=== PATIENT | female | born 1950 | race Caucasian/White ===

== ENCOUNTER 2019-12-26 04:21 | Inpatient (IN) | payer MEDICARE ==
[2019-12-26] MEDS ORDERED: Sodium Chloride 0.9% 10 ML Syringe FLUSH PRN (04:41)
[2019-12-26] MEDS ORDERED: Sodium Chloride 0.9% 1,000 ML IV ONE ×3 (04:41→13:39)
[2019-12-26] MEDS ORDERED: Acetaminophen 500 MG Tab PO ONE (04:42)
--- NOTE | 2019-12-26 04:48 | EDM.PDOC ---
ED HPI GENERAL MEDICAL PROBLEM - General Chief Complaint: Fever Stated Complaint: MED[facility] Time Seen by Provider: 12/26/19 04:37 Source of Information: Reports: Patient, EMS History Limitations: Reports: Physical Impairment - History of Present Illness INITIAL COMMENTS - FREE TEXT/NARRATIVE: Patient presents by ambulance from home concerned that she has a return of sepsis symptoms. She has had previous admissions for sepsis. She began to feel warm, shaky, weak earlier today. Her blood pressure and pulse were abnormal at home. She contacted EMS for transport as she was too weak to get here on her own. She felt quite warm at home but did not take her temperature. She states that at a previous admission, they started her on vancomycin right away. Onset: Sudden Duration: Getting Worse Location: Reports: Generalized Quality: Reports: Ache Severity: Severe Improves with: Reports: None Worsens with: Reports: None Associated Symptoms: Reports: Fever/Chills, Malaise. Denies: Nausea/Vomiting, Shortness of Breath Generalized Pain Score (Numeric/FACES): 10 - Related Data Allergies Allergy/AdvReac Type Severity Reaction Status Date / Time Latex, Natural Rubber Allergy Hives Verified 12/26/19 05:24 metronidazole [From Flagyl] Allergy Anaphylactic Verified 12/26/19 05:24 Shock morphine Allergy Hives Verified 12/26/19 05:44 Penicillins Allergy Anaphylactic Verified 12/26/19 05:44 Shock Home Meds: Home Meds Aspirin 81 mg PO DAILY 12/26/19 [History] Cholecalciferol (Vitamin D3) [Vitamin D3] 1 cap PO DAILY 12/26/19 [History] Citalopram [Citalopram HBr] 20 mg PO DAILY 12/26/19 [History] Clopidogrel [Plavix] 1 tab PO DAILY 12/26/19 [History] Furosemide [Lasix] 40 mg PO DAILY PRN 12/26/19 [History] Metoprolol Succinate [Toprol XL] 25 mg PO DAILY 12/26/19 [History] Multivitamin [Multi-Vitamin Daily] 1 tab PO DAILY 12/26/19 [History] Pregabalin 150 mg PO DAILY 12/26/19 [History] Rosuvastatin Calcium 40 mg PO BEDTIME 12/26/19 [History] Ubidecarenone/Vitamin E [Co Q-10 50 MG Softgel] 1 each PO DAILY 12/26/19 [ History] metFORMIN [Glucophage] 1,000 mg PO BIDMEALS 12/26/19 [History] methocarbamoL [Methocarbamol] 750 mg PO Q6H PRN 12/26/19 [History] Past Medical History HEENT 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: Impaired Vision, Other (See Below) Other HEENT History: wears dentures Cardiovascular 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: Arrhythmia, CAD, PR 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: Endocrine/Metabolic 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: Diabetes, Type I Oncologic (Cancer) 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: Breast Dermatologic 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: Cellulitis - Past Surgical History Cardiovascular Surgical 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: Coronary Artery Bypass, Coronary Artery Stent, Pacer Female Surgical 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: Hysterectomy, Oophorectomy Oncologic Surgical 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: Mastectomy Social & Family History - Tobacco Use Smoking Status *Q: Never Smoker - Caffeine Use Caffeine Use: Reports: Coffee - Recreational Drug Use Recreational Drug Use: No ED ROS GENERAL - Review of Systems Review Of Systems: See Below Constitutional: Reports: Fever, Chills, Malaise, Weakness, Fatigue Respiratory: Reports: Shortness of Breath Cardiovascular: Reports: Blood Pressure Problem, Lightheadedness GI/Abdominal: Reports: No Symptoms Neurological: Reports: Confusion ED EXAM, SEPSIS - Physical Exam Exam: See Below Text/Narrative:: She is shaking under her blankets and feels warm to the touch. Exam Limited By: Physical Impairment General Appearance: Moderate Distress Respiratory/Chest: Lungs Clear Cardiovascular: Regular Rate, Rhythm, Systolic Murmur GI/Abdominal Exam: Soft, Non-Tender Extremities: No Pedal Edema Course - Vital Signs Last Recorded V/S: Last Vital Signs Temp 37.9 C 12/26/19 05:47 Pulse 81 12/26/19 04:24 Resp 30 H 12/26/19 06:27 BP 105/52 L 12/26/19 06:27 Pulse Ox 96 12/26/19 06:27 - Orders/Labs/Meds Orders: Active Orders 24 hr Category Date Time Status EKG Documentation Completion [RC] ASDIRECTED Care 12/26/19 04:40 Active Insert Yu Catheter [Insert Urinary Catheter] [OM.PC] Care 12/26/19 06:15 Ordered Q24H Urinary Catheter Assessment [RC] ASDIRECTED Care 12/26/19 06:09 Active Chest 1V Frontal [CR] Stat Exams 12/26/19 04:53 Taken CULTURE BLOOD [BC] Urgent Lab 12/26/19 05:00 Received CULTURE BLOOD [BC] Urgent Lab 12/26/19 05:05 Received CULTURE URINE [RM] Stat Lab 12/26/19 04:42 Ordered Sodium Chloride 0.9% [Normal Saline] 1,000 ml Med 12/26/19 05:54 Ordered IV .BOLUS Sodium Chloride 0.9% [Saline Flush] Med 12/26/19 04:41 Active 10 ml FLUSH ASDIRECTED PRN Vancomycin 2 gm Med 12/26/19 06:36 Active Sodium Chloride 0.9% [Normal Saline] 500 ml IV ONETIME Blood Culture x2 Reflex Set [OM.PC] Urgent Oth 12/26/19 04:37 Ordered Saline Lock Insert [OM.PC] Routine Oth 12/26/19 04:41 Ordered EKG 12 Lead [EK] Routine Ther 12/26/19 04:40 Ordered Medication Orders Sodium Chloride (Normal Saline) 1,000 mls @ 999 mls/hr IV .BOLUS ONE Stop: 12/26/19 06:54 Last Admin: 12/26/19 06:15 Dose: 999 mls/hr Vancomycin HCl 2 gm/ Sodium (Chloride) 500 mls @ 250 mls/hr IV ONETIME ONE Stop: 12/26/19 08:35 Sodium Chloride (Saline Flush) 10 ml FLUSH ASDIRECTED PRN PRN Reason: Keep Vein Open Last Admin: 12/26/19 05:03 Dose: 10 ml Labs: Laboratory Tests 12/26/19 12/26/19 12/26/19 Range/Units 05:00 05:00 05:00 WBC 14.0 H (4.5-11.0) K/uL RBC 4.41 (3.30-5.50) M/uL Hgb 12.4 (12.0-15.0) g/dL Hct 38.5 (36.0-48.0) % MCV 87 (80-98) fL MCH 28 (27-31) pg MCHC 32 (32-36) % Plt Count 218 (150-400) K/uL Neut % (Auto) 90 H (36-66) % Lymph % (Auto) 5 L (24-44) % Swain % (Auto) 5 (2-6) % Eos % (Auto) 0 L (2-4) % Baso % (Auto) 0 (0-1) % Sodium 140 (140-148) mmol/L Potassium 3.9 (3.6-5.2) mmol/L Chloride 101 (100-108) mmol/L Carbon Dioxide 24 (21-32) mmol/L Anion Gap 14.6 H (5.0-14.0) mmol/L BUN 20 H (7-18) mg/dL Creatinine 1.2 H (0.6-1.0) mg/dL Est Cr Clr Drug Dosing 34.01 mL/min Estimated GFR (MDRD) 44 L (>60) Glucose 155 H (74-106) mg/dL Lactic Acid 3.8 H (0.4-2.0) mmol/L Calcium 9.4 (8.5-10.1) mg/dL Total Bilirubin 0.8 (0.2-1.0) mg/dL AST 21 (15-37) U/L ALT 25 (12-78) U/L Alkaline Phosphatase 112 (46-116) U/L Total Protein 7.2 (6.4-8.2) g/dL Albumin 3.6 (3.4-5.0) g/dL Globulin 3.6 H (2.3-3.5) g/dL Albumin/Globulin Ratio 1.0 L (1.2-2.2) Urine Color (YELLOW) Urine Appearance (CLEAR) Urine pH (5.0-8.0) Ur Specific [place] (1.008-1.030) Urine Protein (NEGATIVE) mg/dL Urine Glucose (UA) (NEGATIVE) mg/dL Urine Ketones (NEGATIVE) mg/dL Urine Occult Blood (NEGATIVE) Urine Nitrite (NEGATIVE) Urine Bilirubin (NEGATIVE) Urine Urobilinogen (0.2-1.0) EU/dL Ur Leukocyte Esterase (NEGATIVE) Urine RBC (0-5) Urine WBC (0-5) Ur Epithelial Cells Amorphous Sediment Urine Bacteria Urine Mucus 12/26/19 Range/Units 06:10 WBC (4.5-11.0) K/uL RBC (3.30-5.50) M/uL Hgb (12.0-15.0) g/dL Hct (36.0-48.0) % MCV (80-98) fL MCH (27-31) pg MCHC (32-36) % Plt Count (150-400) K/uL Neut % (Auto) (36-66) % Lymph % (Auto) (24-44) % [place] % (Auto) (2-6) % Eos % (Auto) (2-4) % Baso % (Auto) (0-1) % Sodium (140-148) mmol/L Potassium (3.6-5.2) mmol/L Chloride (100-108) mmol/L Carbon Dioxide (21-32) mmol/L Anion Gap (5.0-14.0) mmol/L BUN (7-18) mg/dL Creatinine (0.6-1.0) mg/dL Est Cr Clr Drug Dosing mL/min Estimated GFR (MDRD) (>60) Glucose (74-106) mg/dL Lactic Acid (0.4-2.0) mmol/L Calcium (8.5-10.1) mg/dL Total Bilirubin (0.2-1.0) mg/dL AST (15-37) U/L ALT (12-78) U/L Alkaline Phosphatase (46-116) U/L Total Protein (6.4-8.2) g/dL Albumin (3.4-5.0) g/dL Globulin (2.3-3.5) g/dL Albumin/Globulin Ratio (1.2-2.2) Urine Color Yellow (YELLOW) Urine Appearance Clear (CLEAR) Urine pH 7.0 (5.0-8.0) Ur Specific [place] 1.020 (1.008-1.030) Urine Protein 100 H (NEGATIVE) mg/dL Urine Glucose (UA) Negative (NEGATIVE) mg/dL Urine Ketones Negative (NEGATIVE) mg/dL Urine Occult Blood Negative (NEGATIVE) Urine Nitrite Negative (NEGATIVE) Urine Bilirubin Negative (NEGATIVE) Urine Urobilinogen 0.2 (0.2-1.0) EU/dL Ur Leukocyte Esterase Negative (NEGATIVE) Urine RBC 0-5 (0-5) Urine WBC 0-5 (0-5) Ur Epithelial Cells Not seen Amorphous Sediment Not seen Urine Bacteria Rare Urine Mucus Not seen Meds: Medications Generic Name Dose Route Start Last Admin Trade Name Freq PRN Reason Stop Dose Admin Sodium Chloride 1,000 mls @ 999 mls/hr 12/26/19 05:54 12/26/19 06:15 Normal Saline IV 12/26/19 06:54 999 mls/hr .BOLUS ONE Administration Vancomycin HCl 2 gm/ Sodium 500 mls @ 250 mls/hr 12/26/19 06:36 Chloride IV 12/26/19 08:35 ONETIME ONE Sodium Chloride 10 ml 12/26/19 04:41 12/26/19 05:03 Saline Flush FLUSH 10 ml ASDIRECTED PRN Administration Keep Vein Open Discontinued Medications Generic Name Dose Route Start Last Admin Trade Name Evangelista PRN Reason Stop Dose Admin Acetaminophen 1,000 mg 12/26/19 04:42 12/26/19 04:53 Tylenol Extra Strength PO 12/26/19 04:43 1,000 mg ONETIME ONE Administration Sodium Chloride 1,000 mls @ 999 mls/hr 12/26/19 04:41 12/26/19 05:01 Normal Saline IV 12/26/19 05:41 999 mls/hr .BOLUS ONE Administration - Re-Assessments/Exams Free Text/Narrative Re-Assessment/Exam: 12/26/19 05:03 Patient will be given 1 L of normal saline by rapid infusion along with Tylenol 1000 mg. Lab and imaging studies are pending. 12/26/19 06:51 Patient felt better after Tylenol and her initial liter of saline. She has not had presents here as a patient for a number of years. She will need admission. I reviewed her case with Dr. Torres who will arrange admission and further care. Departure - Departure Time of Disposition: 06:52 Disposition: Admitted As Inpatient 64 Condition: Fair Clinical Impression: Sepsis Qualifiers: Sepsis type: sepsis due to unspecified organism Sepsis acute organ dysfunction status: without acute organ dysfunction Qualified Code(s): A41.9 - Sepsis, unspecified organism - Discharge Information Referrals: PCP,None [Primary Care Provider] - Forms: ED Department Discharge Sepsis Event Note - Evaluation Sepsis Screening Result: Possible Severe Sepsis Risk - Focused Exam Vital Signs: Vital Signs Temp Pulse Resp BP Pulse Ox 12/26/19 06:27 30 H 105/52 L 96 12/26/19 05:47 37.9 C 12/26/19 05:07 25 H 104/47 L 94 L 12/26/19 04:24 39.4 C H 81 22 H 106/40 L 97 Date Exam was Performed: 12/26/19 Time Exam was Performed: 06:50 - My Orders Last 24 Hours: My Active Orders 12/26/19 04:37 Blood Culture x2 Reflex Set [OM.PC] Urgent 12/26/19 04:40 EKG Documentation Completion [RC] ASDIRECTED EKG 12 Lead [EK] Routine 12/26/19 04:41 Sodium Chloride 0.9% [Saline Flush] 10 ml FLUSH ASDIRECTED PRN Saline Lock Insert [OM.PC] Routine 12/26/19 04:42 CULTURE URINE [RM] Stat 12/26/19 04:53 Chest 1V Frontal [CR] Stat 12/26/19 05:00 CULTURE BLOOD [BC] Urgent 12/26/19 05:05 CULTURE BLOOD [BC] Urgent 12/26/19 05:54 Sodium Chloride 0.9% [Normal Saline] 1,000 ml IV .BOLUS 12/26/19 06:09 Urinary Catheter Assessment [RC] ASDIRECTED 12/26/19 06:15 Insert Yu Catheter [Insert Urinary Catheter] [OM.PC] Q24H - Assessment/Plan Last 24 Hours: My Active Orders 12/26/19 04:37 Blood Culture x2 Reflex Set [OM.PC] Urgent 12/26/19 04:40 EKG Documentation Completion [RC] ASDIRECTED EKG 12 Lead [EK] Routine 12/26/19 04:41 Sodium Chloride 0.9% [Saline Flush] 10 ml FLUSH ASDIRECTED PRN Saline Lock Insert [OM.PC] Routine 12/26/19 04:42 CULTURE URINE [RM] Stat 12/26/19 04:53 Chest 1V Frontal [CR] Stat 12/26/19 05:00 CULTURE BLOOD [BC] Urgent 12/26/19 05:05 CULTURE BLOOD [BC] Urgent 12/26/19 05:54 Sodium Chloride 0.9% [Normal Saline] 1,000 ml IV .BOLUS 12/26/19 06:09 Urinary Catheter Assessment [RC] ASDIRECTED 12/26/19 06:15 Insert Yu Catheter [Insert Urinary Catheter] [OM.PC] Q24H
[2019-12-26] MEDS ORDERED: Vancomycin 2 GM in Sodium Chloride 0.9% 500 ML IV ONE (06:36)
--- NOTE | 2019-12-26 07:23 | PCM.HP.2 ---
H&P History of Present Illness - General Date of Service: 12/26/19 Admit Problem/Dx: Admission Diagnosis/Problem Admission Diagnosis/Problem Cellulitis of arm Source of Information: Patient, Provider History Limitations: Reports: No Limitations - History of Present Illness Initial Comments - Free Text/Narative: CC: I had the savita HPI: Adrianna presents to the emergency room today with fevers, chills and confusion. She reports that she was in her usual state of health yesterday. Last night prior to going to bed she felt a little bit off but nothing in particular. Shortly thereafter she developed fever and shaking chills. She did not measure her temperature. Symptoms progressed through the night so eventually she did call the ambulance early this morning. She does report a moderate generalized headache that does not radiate. She has not taken anything to make it better. Pain has been fairly constant with no obvious exacerbating factors. No photophobia. She does note that her right arm is a little bit more swollen than usual. No change in bowel or bladder habits. No cough, shortness of breath or sore throat. She does have a history of cellulitis of the right arm with most recent episode about 1 year ago. No sick contacts or recent travel. Work-up in the emergency room was suggestive of sepsis with a likely source being the right arm cellulitis. She was tachycardic, confused and had an elevated lactic acid level. She has received IV fluids and antibiotics and will be admitted for further management. Generalized Pain Score (Numeric/FACES): 10 - Related Data Allergies/Adverse Reactions: Allergies Allergy/AdvReac Type Severity Reaction Status Date / Time Latex, Natural Rubber Allergy Hives Verified 12/26/19 05:24 metronidazole [From Flagyl] Allergy Anaphylactic Verified 12/26/19 05:24 Shock morphine Allergy Hives Verified 12/26/19 05:44 Penicillins Allergy Anaphylactic Verified 12/26/19 05:44 Shock Home Medications: Home Meds Aspirin 81 mg PO DAILY 12/26/19 [History] Cholecalciferol (Vitamin D3) [Vitamin D3] 1 cap PO DAILY 12/26/19 [History] Citalopram [Citalopram HBr] 20 mg PO DAILY 12/26/19 [History] Clopidogrel [Plavix] 1 tab PO DAILY 12/26/19 [History] Furosemide [Lasix] 40 mg PO DAILY PRN 12/26/19 [History] Metoprolol Succinate [Toprol XL] 25 mg PO DAILY 12/26/19 [History] Multivitamin [Multi-Vitamin Daily] 1 tab PO DAILY 12/26/19 [History] Pregabalin 150 mg PO TID 12/26/19 [History] Rosuvastatin Calcium 40 mg PO BEDTIME 12/26/19 [History] Ubidecarenone/Vitamin E [Co Q-10 50 MG Softgel] 1 each PO DAILY 12/26/19 [ History] metFORMIN [Glucophage] 1,000 mg PO BIDMEALS 12/26/19 [History] methocarbamoL [Methocarbamol] 750 mg PO Q6H PRN 12/26/19 [History] Past Medical History HEENT 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: Impaired Vision, Other (See Below) Other HEENT History: wears dentures Cardiovascular 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: Arrhythmia, CAD, [place] [employer] 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: Endocrine/Metabolic 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: Diabetes, Type I Oncologic (Cancer) 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: Breast Dermatologic 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: Cellulitis - Past Surgical History Cardiovascular Surgical 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: Coronary Artery Bypass, Coronary Artery Stent, Pacer Female Surgical 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: Hysterectomy, Oophorectomy Oncologic Surgical 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: Mastectomy Social & Family History - Family History Cardiac: Denies: CAD - Tobacco Use Smoking Status *Q: Never Smoker - Caffeine Use Caffeine Use: Reports: Coffee - Recreational Drug Use Recreational Drug Use: No H&P Review of Systems - Review of Systems: Review Of Systems: See Below Free Text/Narrative: A complete 12 point review of systems was obtained. Pertinent positives and negatives are noted in the history of present illness. All other systems were reviewed and were negative except as noted. Exam - Exam Exam: See Below - Vital Signs Vital Signs: Last Vital Signs Temp 37.9 C 12/26/19 05:47 Pulse 81 12/26/19 04:24 Resp 30 H 12/26/19 06:27 BP 105/52 L 12/26/19 06:27 Pulse Ox 96 12/26/19 06:27 Weight: 73.482 kg - Exam Quality Assessment: No: Supplemental Oxygen General: Alert, Oriented, Cooperative. No: Mild Distress HEENT: Conjunctiva Clear, Mucosa Moist & [place]. No: Scleral Icterus Neck: Supple, Trachea Midline Lungs: Clear to Auscultation, Normal Respiratory Effort Cardiovascular: Regular Rate, Regular Rhythm GI/Abdominal Exam: Normal Bowel Sounds, Soft, No Distention, Tender (left mid abdomen ) Back Exam: Normal Inspection, Full Range of Motion Extremities: No Pedal Edema, Increased Warmth (right arm from wrist to the shoulder ) Skin: Warm, Dry Neuro Extensive - Mental Status: Alert, Oriented x3, Nl Response to Commands Neuro Extensive - Motor, Sensory, Reflexes: No: Dysarthria, Abnormal Motor, Tremor Psychiatric: Alert, Normal Affect - Patient Data Lab Results Last 24 hrs: Laboratory Results - last 24 hr 12/26/19 12/26/19 12/26/19 Range/Units 05:00 05:00 05:00 WBC 14.0 H (4.5-11.0) K/uL RBC 4.41 (3.30-5.50) M/uL Hgb 12.4 (12.0-15.0) g/dL Hct 38.5 (36.0-48.0) % MCV 87 (80-98) fL MCH 28 (27-31) pg MCHC 32 (32-36) % Plt Count 218 (150-400) K/uL Neut % (Auto) 90 H (36-66) % Lymph % (Auto) 5 L (24-44) % [place] % (Auto) 5 (2-6) % Eos % (Auto) 0 L (2-4) % Baso % (Auto) 0 (0-1) % Sodium 140 (140-148) mmol/L Potassium 3.9 (3.6-5.2) mmol/L Chloride 101 (100-108) mmol/L Carbon Dioxide 24 (21-32) mmol/L Anion Gap 14.6 H (5.0-14.0) mmol/L BUN 20 H (7-18) mg/dL Creatinine 1.2 H (0.6-1.0) mg/dL Est Cr Clr Drug Dosing 34.01 mL/min Estimated GFR (MDRD) 44 L (>60) Glucose 155 H (74-106) mg/dL Lactic Acid 3.8 H (0.4-2.0) mmol/L Calcium 9.4 (8.5-10.1) mg/dL Total Bilirubin 0.8 (0.2-1.0) mg/dL AST 21 (15-37) U/L ALT 25 (12-78) U/L Alkaline Phosphatase 112 (46-116) U/L Total Protein 7.2 (6.4-8.2) g/dL Albumin 3.6 (3.4-5.0) g/dL Globulin 3.6 H (2.3-3.5) g/dL Albumin/Globulin Ratio 1.0 L (1.2-2.2) Urine Color (YELLOW) Urine Appearance (CLEAR) Urine pH (5.0-8.0) Ur Specific [place] (1.008-1.030) Urine Protein (NEGATIVE) mg/dL Urine Glucose (UA) (NEGATIVE) mg/dL Urine Ketones (NEGATIVE) mg/dL Urine Occult Blood (NEGATIVE) Urine Nitrite (NEGATIVE) Urine Bilirubin (NEGATIVE) Urine Urobilinogen (0.2-1.0) EU/dL Ur Leukocyte Esterase (NEGATIVE) Urine RBC (0-5) Urine WBC (0-5) Ur Epithelial Cells Amorphous Sediment Urine Bacteria Urine Mucus 12/25/ Range/Units 06:10 WBC (4.5-11.0) K/uL RBC (3.30-5.50) M/uL Hgb (12.0-15.0) g/dL Hct (36.0-48.0) % MCV (80-98) fL MCH (27-31) pg MCHC (32-36) % Plt Count (150-400) K/uL Neut % (Auto) (36-66) % Lymph % (Auto) (24-44) % [place] % (Auto) (2-6) % Eos % (Auto) (2-4) % Baso % (Auto) (0-1) % Sodium (140-148) mmol/L Potassium (3.6-5.2) mmol/L Chloride (100-108) mmol/L Carbon Dioxide (21-32) mmol/L Anion Gap (5.0-14.0) mmol/L BUN (7-18) mg/dL Creatinine (0.6-1.0) mg/dL Est Cr Clr Drug Dosing mL/min Estimated GFR (MDRD) (>60) Glucose (74-106) mg/dL Lactic Acid (0.4-2.0) mmol/L Calcium (8.5-10.1) mg/dL Total Bilirubin (0.2-1.0) mg/dL AST (15-37) U/L ALT (12-78) U/L Alkaline Phosphatase (46-116) U/L Total Protein (6.4-8.2) g/dL Albumin (3.4-5.0) g/dL Globulin (2.3-3.5) g/dL Albumin/Globulin Ratio (1.2-2.2) Urine Color Yellow (YELLOW) Urine Appearance Clear (CLEAR) Urine pH 7.0 (5.0-8.0) Ur Specific [place] 1.020 (1.008-1.030) Urine Protein 100 H (NEGATIVE) mg/dL Urine Glucose (UA) Negative (NEGATIVE) mg/dL Urine Ketones Negative (NEGATIVE) mg/dL Urine Occult Blood Negative (NEGATIVE) Urine Nitrite Negative (NEGATIVE) Urine Bilirubin Negative (NEGATIVE) Urine Urobilinogen 0.2 (0.2-1.0) EU/dL Ur Leukocyte Esterase Negative (NEGATIVE) Urine RBC 0-5 (0-5) Urine WBC 0-5 (0-5) Ur Epithelial Cells Not seen Amorphous Sediment Not seen Urine Bacteria Rare Urine Mucus Not seen Result Diagrams: 12/26/19 05:00 12/26/19 05:00 Imaging Impressions Last 24 hrs: CXR-images personally reviewed-lungs clear with no mass, infiltrate or effusion. Pacemaker noted. EKG INTERPRETATION EKG Date: 12/26/19 Rhythm: NSR Rate (Beats/Min): 83 [place]: LAD-Left [place] Deviation P-Wave: Present QRS: LBBB ST-T: Normal QT: Normal Sepsis Event Note - Evaluation Sepsis Screening Result: Possible Severe Sepsis Risk Current Stage of Sepsis: Sepsis Possible Source of Sepsis: Skin/Soft Tissue - Focused Exam Sepsis Event Note Statement: Focused Sepsis Exam Completed Vital Signs: Vital Signs Temp Pulse Resp BP Pulse Ox 12/26/19 06:27 30 H 105/52 L 96 12/26/19 05:47 37.9 C 12/26/19 05:07 25 H 104/47 L 94 L 12/26/19 04:24 39.4 C H 81 22 H 106/40 L 97 Respiratory Effort Without Exertion: Other (see below) (normal ) Heart Sounds: Murmur Capillary Refill, Detail: Less than/Equal to (</=) 2 Seconds Pulse Description: 2+ Normal Peripheral Pulse Location: Dorsalis Pedis Skin Exam (Focused Sepsis): Normal Turgor Date Exam was Performed: 12/26/19 Time Exam was Performed: 07:38 *Q Meaningful Use (ADM) - VTE Risk Assess *Q Each Risk Factor Represents 1 Point: Obesity ( BMI > 25 kg/m2), Sepsis Total Score 1 Point Risk Factors: 2 Each Risk Factor Represents 2 Points: Age 60 - 74 Years, Malignancy (present or previous) Total Score 2 Point Risk Factors: 4 Each Risk Factor Represents 3 Points: None Total Score 3 Point Risk Factors: 0 Each Risk Factor Represents 5 Points: None Total Score 5 Point Risk Factors: 0 Venous Thromboembolism Risk Factor Score *Q: 6 - Problem List (1) Cellulitis of right arm SNOMED Code(s): 662017017 ICD Code: L03.113 - CELLULITIS OF RIGHT UPPER LIMB Status: Acute Current Visit: Yes (2) Sepsis SNOMED Code(s): 70559740 ICD Code: A41.9 - SEPSIS, UNSPECIFIED ORGANISM Status: Acute Current Visit: Yes Qualifiers: Sepsis type: sepsis due to unspecified organism Sepsis acute organ dysfunction status: without acute organ dysfunction Qualified Code(s): A41.9 - Sepsis, unspecified organism (3) Diabetes mellitus type II, controlled SNOMED Code(s): 04661050, 911473526 ICD Code: E11.9 - TYPE 2 DIABETES MELLITUS WITHOUT COMPLICATIONS Status: Chronic Current Visit: Yes Qualifiers: Diabetes mellitus shelter insulin use: without shelter use Diabetes mellitus complication status: with neurologic complications Diabetes mellitus complication detail: with polyneuropathy Qualified Code(s): E11.42 - Type 2 diabetes mellitus with diabetic polyneuropathy (4) Hx of breast cancer SNOMED Code(s): 595780296 ICD Code: Z85.3 - PERSONAL HISTORY OF MALIGNANT NEOPLASM OF BREAST Status: Chronic Current Visit: Yes Problem List Initiated/Reviewed/Updated: Yes Orders Last 24hrs: Active Orders 24 hr Category Date Time Status Patient Status Manage Transfer [TRANSFER] Routine ADT 12/26/19 07:10 Ordered EKG Documentation Completion [RC] ASDIRECTED Care 12/26/19 04:40 Active Insert Yu Catheter [Insert Urinary Catheter] [OM.PC] Care 12/26/19 06:15 Ordered Q24H Urinary Catheter Assessment [RC] ASDIRECTED Care 12/26/19 06:09 Active Chest 1V Frontal [CR] Stat Exams 12/26/19 04:53 Taken CULTURE BLOOD [BC] Urgent Lab 12/26/19 05:00 Received CULTURE BLOOD [BC] Urgent Lab 12/26/19 05:05 Received CULTURE URINE [RM] Stat Lab 12/26/19 06:10 Received Sodium Chloride 0.9% [Normal Saline] 1,000 ml Med 12/26/19 07:15 Active IV ASDIRECTED Sodium Chloride 0.9% [Saline Flush] Med 12/26/19 04:41 Active 10 ml FLUSH ASDIRECTED PRN Vancomycin 2 gm Med 12/26/19 06:36 Active Sodium Chloride 0.9% [Normal Saline] 500 ml IV ONETIME Blood Culture x2 Reflex Set [OM.PC] Urgent Oth 12/26/19 04:37 Ordered Saline Lock Insert [OM.PC] Routine Oth 12/26/19 04:41 Ordered Resuscitation Status Routine Resus Stat 12/26/19 07:11 Ordered EKG 12 Lead [EK] Routine Ther 12/26/19 04:40 Ordered Medication Orders Vancomycin HCl 2 gm/ Sodium (Chloride) 500 mls @ 250 mls/hr IV ONETIME ONE Stop: 12/26/19 08:35 Last Admin: 12/26/19 07:03 Dose: 250 mls/hr Sodium Chloride (Normal Saline) 1,000 mls @ 125 mls/hr IV ASDIRECTED MYRA Sodium Chloride (Saline Flush) 10 ml FLUSH ASDIRECTED PRN PRN Reason: Keep Vein Open Last Admin: 12/26/19 05:03 Dose: 10 ml Assessment/Plan Comment:: ASSESSMENT AND PLAN - Right arm cellulitis with sepsis-history of breast cancer with right mastectomy. Evidence for sepsis includes tachycardia, confusion and lactic acidosis. She is improving with treatment provided so far in the emergency room. She has received antibiotics after cultures were obtained and is in the process of completing a 30 mL/kg fluid bolus. Blood pressure is stable at this time. 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 Controlled by history. -Continue metformin History of breast cancer-previous right mastectomy and extensive lymph node dissection on the right. Status post aortic valve placement-bioprosthetic valve. Maintenance issues - - DVT prophylaxis -SCDs - GI prophylaxis -not indicated - Nutrition -consistent carbohydrates - Yu catheter -not indicated CODE STATUS -full code Admission justification -this patient will be admitted for inpatient services and is medically appropriate meeting medical necessity for inpatient admission as outlined in my documentation. I reasonably expect the patient will require inpatient services that span a period time over 2 midnights. I reasonably expect this patient to be discharged or transferred within 96 hours after admission to the [facility]. Disposition -I would anticipate discharge home after the hospital stay Primary care physician - Dr Yoselyn Torres M.D. - Mortality Measure Prognosis:: Good
[2019-12-26] MEDS ORDERED: Ondansetron 4 MG Tab.DIS PO PRN (08:49)
[2019-12-26] MEDS ORDERED: Methocarbamol 500 MG Tab PO PRN (08:49)
[2019-12-26] MEDS ORDERED: Ondansetron 4 MG/2 ML SDV IV PRN (08:49)
[2019-12-26] MEDS ORDERED: LORazepam 2 MG/ML SDV IVPUSH PRN (08:49)
[2019-12-26] MEDS ORDERED: Magnesium Hydroxide 400 MG/5 ML Susp 30 ML Cup PO PRN (08:49)
[2019-12-26] MEDS: Sodium Chloride 0.9% 1,000 ML IV SCH ×2 (09:00→15:58)
[2019-12-26] MEDS: Ibuprofen 600 MG Tab PO PRN (09:54)
[2019-12-26] MEDS ORDERED: Sodium Chloride 0.9% 500 ML IV SCH (11:00)
[2019-12-26] MEDS: Clopidogrel 75 MG Tab PO SCH (11:25)
[2019-12-26] MEDS: Aspirin 81 MG Tab.Chew PO SCH (11:25)
[2019-12-26] MEDS: Citalopram 20 MG Tab PO SCH (11:25)
[2019-12-26] MEDS: Multivitamins with Iron/Calcium/Folic Acid/Minerals Tab PO SCH (11:25)
[2019-12-26] MEDS: Lactobacillus Rhamnosus GG (Probiotic) Cap PO SCH ×2 (11:25→20:29)
[2019-12-26] MEDS: Pregabalin 75 MG Cap PO SCH ×3 (11:29→20:32)
[2019-12-26] MEDS: metFORMIN 500 MG Tab PO SCH ×2 (11:29→18:11)
[2019-12-26] MEDS: Metoprolol Succinate 25 MG Tab.ER PO SCH (11:31)
[2019-12-26] MEDS: Acetaminophen 325 MG Tab PO PRN (14:58)
[2019-12-26] MEDS: Rosuvastatin 10 MG Tab PO SCH (20:28)
[2019-12-26] MEDS: Melatonin 3 MG Tab PO SCH (20:29)
[2019-12-27] MEDS: Sodium Chloride 0.9% 1,000 ML IV SCH ×2 (00:06→07:31)
[2019-12-27] MEDS: Acetaminophen 325 MG Tab PO PRN ×3 (01:23→19:24)
[2019-12-27] MEDS: metFORMIN 500 MG Tab PO SCH ×2 (07:30→16:59)
[2019-12-27] MEDS: Multivitamins with Iron/Calcium/Folic Acid/Minerals Tab PO SCH (08:25)
[2019-12-27] MEDS: Clopidogrel 75 MG Tab PO SCH (08:25)
[2019-12-27] MEDS: Lactobacillus Rhamnosus GG (Probiotic) Cap PO SCH ×2 (08:25→21:37)
[2019-12-27] MEDS: Citalopram 20 MG Tab PO SCH (08:25)
[2019-12-27] MEDS: Aspirin 81 MG Tab.Chew PO SCH (08:25)
[2019-12-27] MEDS: Ibuprofen 600 MG Tab PO PRN ×2 (08:27→21:42)
[2019-12-27] MEDS: Pregabalin 75 MG Cap PO SCH (08:28)
[2019-12-27] MEDS: Metoprolol Succinate 25 MG Tab.ER PO SCH (08:28)
[2019-12-27] MEDS ORDERED: Potassium Chloride 20 MEQ Tab.ER PO ONE (09:00)
--- NOTE | 2019-12-27 10:04 | PCM.PN ---
- General Info Date of Service: 12/27/19 Subjective Update: No acute events overnight. Blood pressure was on the low side through the first part of the day yesterday but did improve overnight. She is feeling tired but otherwise feeling better. Right arm is still swollen and somewhat painful but better than yesterday. Redness is better compared to yesterday. White blood cell count is improved. No shortness of breath or nausea. Functional Status: Reports: Pain Controlled, Tolerating Diet - Review of Systems General: Denies: Fever Cardiovascular: Reports: Edema (right arm) Musculoskeletal: Reports: Arm Pain (right arm) - Patient Data Vitals - Most Recent: Last Vital Signs Temp 36.0 C L 12/27/19 07:33 Pulse 70 12/27/19 08:28 Resp 20 12/27/19 07:33 BP 110/44 L 12/27/19 08:28 Pulse Ox 92 L 12/27/19 07:33 Weight - Most Recent: 73.482 kg I&O - Last 24 Hours: Intake & Output 12/26/19 12/27/19 12/27/19 22:59 06:59 14:59 Intake Total 5673 2000 2177 Output Total 800 1700 600 Balance 4873 300 1577 Lab Results Last 24 Hours: Laboratory Results - last 24 hr 12/26/19 12/27/19 12/27/19 Range/Units 15:00 04:15 04:15 WBC 10.0 (4.5-11.0) K/uL RBC 3.54 (3.30-5.50) M/uL Hgb 9.9 L D (12.0-15.0) g/dL Hct 31.6 L (36.0-48.0) % MCV 89 (80-98) fL MCH 28 (27-31) pg MCHC 31 L (32-36) % Plt Count 153 (150-400) K/uL Sodium 141 (140-148) mmol/L Potassium 3.0 L (3.6-5.2) mmol/L Chloride 109 H (100-108) mmol/L Carbon Dioxide 21 (21-32) mmol/L Anion Gap 14.0 (5.0-14.0) mmol/L BUN 13 (7-18) mg/dL Creatinine 0.9 (0.6-1.0) mg/dL Est Cr Clr Drug Dosing 45.34 mL/min Estimated GFR (MDRD) > 60 (>60) Glucose 96 (74-106) mg/dL Lactic Acid 1.6 (0.4-2.0) mmol/L Calcium 7.9 L D (8.5-10.1) mg/dL [place] Results Last 24 Hours: Microbiology 12/26/19 06:10 Urine Culture - Preliminary Urine, Clean Catch NO GROWTH AFTER 1 DAY 12/26/19 05:00 Aerobic Blood Culture - Preliminary Blood - Venous - Iv Start NO GROWTH AFTER 1 DAY Anaerobic Blood Culture - Preliminary NO GROWTH AFTER 1 DAY 12/26/19 05:05 Aerobic Blood Culture - Preliminary Blood - Arm, Left NO GROWTH AFTER 1 DAY Anaerobic Blood Culture - Preliminary NO GROWTH AFTER 1 DAY Med Orders - Current: Current Medications Acetaminophen (Tylenol) 650 mg PO Q4H PRN PRN Reason: Pain (Mild 1-3)/fever Last Admin: 12/27/19 07:29 Dose: 650 mg Aspirin (Aspirin) 81 mg PO DAILY [facility] Last Admin: 12/27/19 08:25 Dose: 81 mg Citalopram Hydrobromide (Celexa) 20 mg PO DAILY [facility] Last Admin: 12/27/19 08:25 Dose: 20 mg Clopidogrel Bisulfate (Plavix) 75 mg PO DAILY [facility] Last Admin: 12/27/19 08:25 Dose: 75 mg Vancomycin HCl 1 gm/ Sodium (Chloride) 250 mls @ 150 mls/hr IV Q24H [facility] Last Admin: 12/27/19 07:26 Dose: 150 mls/hr Ibuprofen (Motrin) 600 mg PO Q6H PRN PRN Reason: Pain/Fever Last Admin: 12/27/19 08:27 Dose: 600 mg Lactobacillus Rhamnosus (Culturelle) 1 cap PO BID [facility] Last Admin: 12/27/19 08:25 Dose: 1 cap Lorazepam (Ativan) 0.5 mg IVPUSH Q4H PRN PRN Reason: Nausea/Vomiting Magnesium Hydroxide (Milk Of Magnesia) 30 ml PO Q12H PRN PRN Reason: Constipation Melatonin (Melatonin) 9 mg PO BEDTIME [facility] Last Admin: 12/26/19 20:29 Dose: 9 mg Metformin HCl (Glucophage) 1,000 mg PO BIDMEALS [facility] Last Admin: 12/27/19 07:30 Dose: 1,000 mg Methocarbamol (Robaxin) 750 mg PO Q6H PRN PRN Reason: Muscle Spasm Metoprolol Succinate (Toprol Xl) 25 mg PO DAILY [facility] Last Admin: 12/27/19 08:28 Dose: Not Given Multivitamins/Minerals (Thera M Plus) 1 tab PO DAILY [facility] Last Admin: 12/27/19 08:25 Dose: 1 tab Ondansetron HCl (Zofran Odt) 4 mg PO Q6H PRN PRN Reason: Nausea able to take PO Ondansetron HCl (Zofran) 4 mg IV Q6H PRN PRN Reason: Nausea/Vomiting Pregabalin (Lyrica) 150 mg PO BEDTIME [facility] Rosuvastatin Calcium (Crestor) 40 mg PO BEDTIME [facility] Last Admin: 12/26/19 20:28 Dose: 40 mg Senna/Docusate Sodium (Senna Plus) 1 tab PO BID PRN PRN Reason: Constipation Sodium Chloride (Saline Flush) 10 ml FLUSH ASDIRECTED PRN PRN Reason: Keep Vein Open Last Admin: 12/26/19 05:03 Dose: 10 ml Discontinued Medications Acetaminophen (Tylenol Extra Strength) 1,000 mg PO ONETIME ONE Stop: 12/26/19 04:43 Last Admin: 12/26/19 04:53 Dose: 1,000 mg Sodium Chloride (Normal Saline) 1,000 mls @ 999 mls/hr IV .BOLUS ONE Stop: 12/26/19 05:41 Last Admin: 12/26/19 05:01 Dose: 999 mls/hr Sodium Chloride (Normal Saline) 1,000 mls @ 999 mls/hr IV .BOLUS ONE Stop: 12/26/19 06:54 Last Admin: 12/26/19 06:15 Dose: 999 mls/hr Vancomycin HCl 2 gm/ Sodium (Chloride) 500 mls @ 250 mls/hr IV ONETIME ONE Stop: 12/26/19 08:35 Last Admin: 12/26/19 07:03 Dose: 250 mls/hr Sodium Chloride (Normal Saline) 1,000 mls @ 125 mls/hr IV ASDIRECTED [facility] Last Admin: 12/27/19 07:31 Dose: 125 mls/hr Sodium Chloride (Normal Saline) 500 mls @ 500 mls/hr IV ASDIRECTED [facility] Stop: 12/26/19 12:01 Sodium Chloride (Normal Saline) 1,000 mls @ 999 mls/hr IV .BOLUS ONE Stop: 12/26/19 14:39 Last Admin: 12/26/19 13:45 Dose: 999 mls/hr Potassium Chloride (Klor-Con M20) 40 meq PO ONETIME ONE Stop: 12/27/19 09:01 Last Admin: 12/27/19 09:00 Dose: 40 meq Pregabalin (Lyrica) 150 mg PO TID MYRA Last Admin: 12/27/19 08:28 Dose: Not Given - Exam Quality Assessment: No: Supplemental Oxygen General: Alert, Oriented, Cooperative, No Acute Distress Lungs: Normal Respiratory Effort Cardiovascular: Regular Rate, Regular Rhythm GI/Abdominal Exam: Soft, No Distention Extremities: No Pedal Edema, Increased Warmth (right arm from wrist to the shoulder) Skin: Warm, Dry, Rash (mild erythema right wrist to the shoulder (withing marked area)) Psy/Mental Status: Alert, Normal Affect Sepsis Event Note - Evaluation Sepsis Screening Result: No Definite Risk - Focused Exam Vital Signs: Vital Signs Temp Pulse Pulse Resp BP BP Pulse Ox 12/27/19 08:28 70 110/44 L 12/27/19 07:33 36.0 C L 70 20 110/44 L 92 L 12/27/19 02:00 36.6 C 70 16 93/54 L 96 12/26/19 22:36 37.7 C 81 16 100/54 L 92 L Date Exam was Performed: 12/27/19 Time Exam was Performed: 10:25 - Problem List & Annotations (1) Cellulitis of right arm SNOMED Code(s): 018776732 Code(s): L03.113 - CELLULITIS OF RIGHT UPPER LIMB Status: Acute Current Visit: Yes (2) Sepsis SNOMED Code(s): 56715718 Code(s): A41.9 - SEPSIS, UNSPECIFIED ORGANISM Status: Acute Current Visit : Yes Qualifiers: Sepsis type: sepsis due to unspecified organism Sepsis acute organ dysfunction status: without acute organ dysfunction Qualified Code(s): A41.9 - Sepsis, unspecified organism (3) Diabetes mellitus type II, controlled SNOMED Code(s): 99576307, 230740013 Code(s): E11.9 - TYPE 2 DIABETES MELLITUS WITHOUT COMPLICATIONS Status: Chronic Current Visit: Yes Qualifiers: Diabetes mellitus fdc insulin use: without fdc use Diabetes mellitus complication status: with neurologic complications Diabetes mellitus complication detail: with polyneuropathy Qualified Code(s): E11.42 - Type 2 diabetes mellitus with diabetic polyneuropathy (4) Hx of breast cancer SNOMED Code(s): 543395798 Code(s): Z85.3 - PERSONAL HISTORY OF MALIGNANT NEOPLASM OF BREAST Status: Chronic Current Visit: Yes - Problem List Review Problem List Initiated/Reviewed/Updated: Yes - My Orders Last 24 Hours: My Active Orders 12/26/19 10:00 Aspirin 81 mg PO DAILY Citalopram [Celexa] 20 mg PO DAILY Clopidogrel [Plavix] 75 mg PO DAILY Lactobacillus Rhamnosus GG [Culturelle] 1 cap PO BID Metoprolol Succinate [Toprol XL] 25 mg PO DAILY metFORMIN [Glucophage] 1,000 mg PO BIDMEALS 12/26/19 10:15 Multivitamins w-Iron/Ca/FA/Min [Thera M Plus] 1 tab PO DAILY 12/26/19 21:00 Melatonin 9 mg PO BEDTIME Rosuvastatin [Crestor] 40 mg PO BEDTIME 12/27/19 08:00 Vancomycin 1 gm Sodium Chloride 0.9% [Normal Saline] 250 ml IV Q24H 12/27/19 10:01 Convert IV to Saline Lock [OM.PC] Routine 12/27/19 21:00 Pregabalin [Lyrica] 150 mg PO BEDTIME 12/28/19 05:00 BASIC METABOLIC PANEL,BMP [CHEM] Timed CBC W/O DIFF,HEMOGRAM [HEME] Timed (1) - Plan Plan:: ASSESSMENT AND PLAN - Right arm cellulitis with sepsis-history of breast cancer with right mastectomy. Sepsis has resolved. Cultures negative so far. Clinically improving. Induration and erythema have improved compared to yesterday. 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 Controlled by history. -Continue metformin History of breast cancer-previous right mastectomy and extensive lymph node dissection on the right. Status post aortic valve placement-bioprosthetic valve. Maintenance issues - - DVT prophylaxis -SCDs - GI prophylaxis -not indicated - Nutrition -consistent carbohydrates Disposition -I would anticipate discharge home after the hospital stay Primary care physician - Dr Yoselyn Torres M.D.
[2019-12-27] MEDS ORDERED: Dimethicone 20%/Zinc Oxide 25% 56 GM Spray Bottle TOP PRN (18:13)
[2019-12-27] MEDS ORDERED: Pregabalin 75 MG Cap PO SCH (21:00)
[2019-12-27] MEDS: Melatonin 3 MG Tab PO SCH (21:38)
[2019-12-27] MEDS: Rosuvastatin 10 MG Tab PO SCH (21:38)
[2019-12-28] MEDS: Acetaminophen 325 MG Tab PO PRN (03:42)
[2019-12-28] MEDS: metFORMIN 500 MG Tab PO SCH (07:36)
[2019-12-28] MEDS: Lactobacillus Rhamnosus GG (Probiotic) Cap PO SCH (09:25)
[2019-12-28] MEDS: Multivitamins with Iron/Calcium/Folic Acid/Minerals Tab PO SCH (09:25)
[2019-12-28] MEDS: Aspirin 81 MG Tab.Chew PO SCH (09:25)
[2019-12-28] MEDS: Citalopram 20 MG Tab PO SCH (09:25)
[2019-12-28] MEDS: Metoprolol Succinate 25 MG Tab.ER PO SCH (09:25)
[2019-12-28] MEDS: Clopidogrel 75 MG Tab PO SCH (09:25)
--- NOTE | 2019-12-28 10:57 | PCM.DCSUM1 ---
Discharge Summary - Hospital Course Brief History: Ms. Burleson is a 69-year-old woman who was admitted through the emergency department with cellulitis of her right upper extremity and sepsis. - Discharge Data Discharge Date: 12/28/19 Discharge Disposition: Home, Self-Care 01 Condition: Fair - Referral to Home Health Primary Care Physician: PCP None - Discharge Diagnosis/Problem(s) (1) Sepsis SNOMED Code(s): 13407212 ICD Code: A41.9 - SEPSIS, UNSPECIFIED ORGANISM Status: Acute Current Visit: Yes Qualifiers: Sepsis type: sepsis due to unspecified organism Sepsis acute organ dysfunction status: without acute organ dysfunction Qualified Code(s): A41.9 - Sepsis, unspecified organism (2) Cellulitis of right arm SNOMED Code(s): 566546989 ICD Code: L03.113 - CELLULITIS OF RIGHT UPPER LIMB Status: Acute Current Visit: Yes (3) Diabetes mellitus type II, controlled SNOMED Code(s): 48584756, 716426442 ICD Code: E11.9 - TYPE 2 DIABETES MELLITUS WITHOUT COMPLICATIONS Status: Chronic Current Visit: Yes Qualifiers: Diabetes mellitus residential insulin use: without termination clerk use Diabetes mellitus complication status: with neurologic complications Diabetes mellitus complication detail: with polyneuropathy Qualified Code(s): E11.42 - Type 2 diabetes mellitus with diabetic polyneuropathy (4) Hx of aortic valve replacement SNOMED Code(s): 2864990096426, 668206078, 1901993805168 ICD Code: Z95.2 - PRESENCE OF PROSTHETIC HEART VALVE Status: Chronic Current Visit: No - Patient Summary/Data Hospital Course: Ms. Burleson presented to the emergency room with fevers, chills and confusion. She reports that she was in her usual state of health yesterday. Last night prior to going to bed she felt a little bit off but nothing in particular. Shortly thereafter she developed fever and shaking chills. She did not measure her temperature. Symptoms progressed through the night so eventually she did call the ambulance early this morning. She does report a moderate generalized headache that does not radiate. She has not taken anything to make it better. Pain has been fairly constant with no obvious exacerbating factors. No photophobia. She does note that her right arm is a little bit more swollen than usual. No change in bowel or bladder habits. No cough, shortness of breath or sore throat. She does have a history of cellulitis of the right arm with most recent episode about 1 year ago. No sick contacts or recent travel. Work-up in the emergency room was suggestive of sepsis with a likely source being the right arm cellulitis. She was tachycardic, confused and had an elevated lactic acid level. She has received IV fluids and antibiotics and will be admitted for further management. In the emergency department she was started on IV vancomycin and remained on that until the time of discharge. Blood cultures remained negative up until the time of discharge. After 2 days of hospitalization cellulitis of the right upper extremity had resolved. She did have significant residual lymphedema which she has struggled with for some time. She will be discharged home on an additional 7 days of oral antibiotic therapy with doxycycline and will also take probiotics twice daily. Follow-up appointment will be scheduled with her primary care provider within 1 week. Activity will be as tolerated and she will resume her usual diet. She was offered occupational therapy consult for management of her lymphedema but states that her daughter will set this up for her in the [facility]. - Patient Instructions Diet: Usual Diet as Tolerated Activity: As Tolerated Other/Special Instructions: Please schedule follow-up appointment with primary care provider within 1 week. - Discharge Plan *PRESCRIPTION DRUG MONITORING PROGRAM REVIEWED*: Not Applicable *COPY OF PRESCRIPTION DRUG MONITORING REPORT IN PATIENT LORI: Not Applicable Prescriptions/Med Rec: Doxycycline [Vibramycin] 100 mg PO BID #14 cap Lactobacillus Rhamnosus GG [Culturelle] 1 cap PO BID #60 cap Home Medications: Home Meds Aspirin 81 mg PO DAILY 12/26/19 [History] Cholecalciferol (Vitamin D3) [Vitamin D3] 1 cap PO DAILY 12/26/19 [History] Citalopram [Citalopram HBr] 20 mg PO DAILY 12/26/19 [History] Clopidogrel [Plavix] 1 tab PO DAILY 12/26/19 [History] Furosemide [Lasix] 40 mg PO DAILY PRN 12/26/19 [History] Metoprolol Succinate [Toprol XL] 25 mg PO DAILY 12/26/19 [History] Multivitamin [Multi-Vitamin Daily] 1 tab PO DAILY 12/26/19 [History] Pregabalin 150 mg PO TID 12/26/19 [History] Rosuvastatin Calcium 40 mg PO BEDTIME 12/26/19 [History] Ubidecarenone/Vitamin E [Co Q-10 50 MG Softgel] 1 each PO DAILY 12/26/19 [ History] metFORMIN [Glucophage] 1,000 mg PO BIDMEALS 12/26/19 [History] methocarbamoL [Methocarbamol] 750 mg PO Q6H PRN 12/26/19 [History] Doxycycline [Vibramycin] 100 mg PO BID #14 cap 12/28/19 [Rx] Lactobacillus Rhamnosus GG [Culturelle] 1 cap PO BID #60 cap 12/28/19 [Rx] Referrals: PCP,None [Primary Care Provider] - - Discharge Summary/Plan Comment DC Time >30 min.: No - Patient Data Vitals - Most Recent: Last Vital Signs Temp 96.0 F L 12/28/19 07:00 Pulse 60 12/28/19 09:25 Resp 18 12/28/19 07:00 BP 128/62 12/28/19 09:25 Pulse Ox 99 12/28/19 07:00 Weight - Most Recent: 162 lb I&O - Last 24 hours: Intake & Output 12/27/19 12/28/19 12/28/19 22:59 06:59 14:59 Intake Total 097 217 4657 Output Total 600 600 500 Balance -100 -100 770 Lab Results - Last 24 hrs: Laboratory Results - last 24 hr 12/28/19 12/28/19 Range/Units 04:10 04:10 WBC 6.8 (4.5-11.0) K/uL RBC 3.62 (3.30-5.50) M/uL Hgb 10.0 L (12.0-15.0) g/dL Hct 32.3 L (36.0-48.0) % MCV 89 (80-98) fL MCH 28 (27-31) pg MCHC 31 L (32-36) % Plt Count 158 (150-400) K/uL Sodium 140 (140-148) mmol/L Potassium 3.8 (3.6-5.2) mmol/L Chloride 109 H (100-108) mmol/L Carbon Dioxide 20 L (21-32) mmol/L Anion Gap 14.8 H (5.0-14.0) mmol/L BUN 13 (7-18) mg/dL Creatinine 1.0 (0.6-1.0) mg/dL Est Cr Clr Drug Dosing 40.81 mL/min Estimated GFR (MDRD) 55 L (>60) Glucose 108 H (74-106) mg/dL Calcium 8.2 L (8.5-10.1) mg/dL LUIS Results - Last 24 hrs: Microbiology 12/26/19 06:10 Urine Culture - Final Urine, Clean Catch NO GROWTH AFTER 2 DAYS 12/26/19 05:00 Aerobic Blood Culture - Preliminary Blood - Venous - Iv Start NO GROWTH AFTER 2 DAYS Anaerobic Blood Culture - Preliminary NO GROWTH AFTER 2 DAYS 12/26/19 05:05 Aerobic Blood Culture - Preliminary Blood - Arm, Left NO GROWTH AFTER 2 DAYS Anaerobic Blood Culture - Preliminary NO GROWTH AFTER 2 DAYS Med Orders - Current: Current Medications Acetaminophen (Tylenol) 650 mg PO Q4H PRN PRN Reason: Pain (Mild 1-3)/fever Last Admin: 12/28/19 03:42 Dose: 650 mg Aspirin (Aspirin) 81 mg PO DAILY [facility] Last Admin: 12/28/19 09:25 Dose: 81 mg Citalopram Hydrobromide (Celexa) 20 mg PO DAILY [facility] Last Admin: 12/28/19 09:25 Dose: 20 mg Clopidogrel Bisulfate (Plavix) 75 mg PO DAILY [facility] Last Admin: 12/28/19 09:25 Dose: 75 mg Dimethicone/Zinc Oxide (Rash Relief-Zinc Oxide [place]) 0 gm TOP ASDIRECTED PRN PRN Reason: Rash Last Admin: 12/27/19 19:26 Dose: 2 spray Vancomycin HCl 1 gm/ Sodium (Chloride) 250 mls @ 150 mls/hr IV Q24H [facility] Last Admin: 12/28/19 07:40 Dose: 150 mls/hr Ibuprofen (Motrin) 600 mg PO Q6H PRN PRN Reason: Pain/Fever Last Admin: 12/27/19 21:42 Dose: 600 mg Lactobacillus Rhamnosus (Culturelle) 1 cap PO BID [facility] Last Admin: 12/28/19 09:25 Dose: 1 cap Lorazepam (Ativan) 0.5 mg IVPUSH Q4H PRN PRN Reason: Nausea/Vomiting Magnesium Hydroxide (Milk Of Magnesia) 30 ml PO Q12H PRN PRN Reason: Constipation Melatonin (Melatonin) 9 mg PO BEDTIME [facility] Last Admin: 12/27/19 21:38 Dose: 9 mg Metformin HCl (Glucophage) 1,000 mg PO BIDMEALS [facility] Last Admin: 12/28/19 07:36 Dose: 1,000 mg Methocarbamol (Robaxin) 750 mg PO Q6H PRN PRN Reason: Muscle Spasm Metoprolol Succinate (Toprol Xl) 25 mg PO DAILY [facility] Last Admin: 12/28/19 09:25 Dose: 25 mg Multivitamins/Minerals (Thera M Plus) 1 tab PO DAILY [facility] Last Admin: 12/28/19 09:25 Dose: 1 tab Ondansetron HCl (Zofran Odt) 4 mg PO Q6H PRN PRN Reason: Nausea able to take PO Ondansetron HCl (Zofran) 4 mg IV Q6H PRN PRN Reason: Nausea/Vomiting Pregabalin (Lyrica) 150 mg PO BEDTIME [facility] Last Admin: 12/27/19 21:41 Dose: 150 mg Rosuvastatin Calcium (Crestor) 40 mg PO BEDTIME [facility] Last Admin: 12/27/19 21:38 Dose: 40 mg Senna/Docusate Sodium (Senna Plus) 1 tab PO BID PRN PRN Reason: Constipation Sodium Chloride (Saline Flush) 10 ml FLUSH ASDIRECTED PRN PRN Reason: Keep Vein Open Last Admin: 12/26/19 05:03 Dose: 10 ml Discontinued Medications Acetaminophen (Tylenol Extra Strength) 1,000 mg PO ONETIME ONE Stop: 12/26/19 04:43 Last Admin: 12/26/19 04:53 Dose: 1,000 mg Sodium Chloride (Normal Saline) 1,000 mls @ 999 mls/hr IV .BOLUS ONE Stop: 12/26/19 05:41 Last Admin: 12/26/19 05:01 Dose: 999 mls/hr Sodium Chloride (Normal Saline) 1,000 mls @ 999 mls/hr IV .BOLUS ONE Stop: 12/26/19 06:54 Last Admin: 12/26/19 06:15 Dose: 999 mls/hr Vancomycin HCl 2 gm/ Sodium (Chloride) 500 mls @ 250 mls/hr IV ONETIME ONE Stop: 12/26/19 08:35 Last Admin: 12/26/19 07:03 Dose: 250 mls/hr Sodium Chloride (Normal Saline) 1,000 mls @ 125 mls/hr IV ASDIRECTED [facility] Last Admin: 12/27/19 07:31 Dose: 125 mls/hr Sodium Chloride (Normal Saline) 500 mls @ 500 mls/hr IV ASDIRECTED [facility] Stop: 12/26/19 12:01 Sodium Chloride (Normal Saline) 1,000 mls @ 999 mls/hr IV .BOLUS ONE Stop: 12/26/19 14:39 Last Admin: 12/26/19 13:45 Dose: 999 mls/hr Potassium Chloride (Klor-Con M20) 40 meq PO ONETIME ONE Stop: 12/27/19 09:01 Last Admin: 12/27/19 09:00 Dose: 40 meq Pregabalin (Lyrica) 150 mg PO TID [facility] Last Admin: 12/27/19 08:28 Dose: Not Given - Exam General: Reports: Alert, Oriented, Cooperative, No Acute Distress Lungs: Reports: Clear to Auscultation, Normal Respiratory Effort Cardiovascular: Reports: Regular Rate, Regular Rhythm, No Murmurs GI/Abdominal Exam: Soft, Non-Tender, No Organomegaly, No Distention Extremities: Other (Lymphedema right arm, cellulitis has resolved)
--- NOTE | 2019-12-28 11:40 | CR ---
CHEST: Portable 12/26/2019 at 5:26 AM CLINICAL HISTORY:Weakness, early sepsis COMPARISON:None FINDINGS: Patient has had previous sternotomy. Heart size and pulmonary vascularity are normal. There is a permanent cardiac pacer in place. No infiltrates are seen. Small nodular density near the right hemidiaphragm is felt to be the nipple. There are atherosclerotic changes in the aorta. Impression: No acute cardiopulmonary process Previous sternotomy Bony cardiac pacer
== END 2019-12-28 12:45 | disposition home or self-care (01) | DRG 872 ==
LOC: JP.ED 04:21 → JP.MS 07:10
PROVIDERS: ADMIT Internal Medicine; ATTEND Internal Medicine
DX: A41.9 Sepsis, unspecified organism (principal); E11.9 Type 2 diabetes mellitus without complications; L03.113 Cellulitis of right upper limb; E11.42 Type 2 diabetes mellitus with diabetic polyneuropathy; I25.10 Atherosclerotic heart disease of native coronary artery without angina pectoris; Z95.2 Presence of prosthetic heart valve; Z91.040 Latex allergy status; Z88.5 Allergy status to narcotic agent; Z88.0 Allergy status to penicillin; Z88.8 Allergy status to other drugs, medicaments and biological substances; Z79.82 Long term (current) use of aspirin; Z79.84 Long term (current) use of oral hypoglycemic drugs; Z79.899 Other long term (current) drug therapy; Z90.710 Acquired absence of both cervix and uterus; Z90.10 Acquired absence of unspecified breast and nipple; Z85.3 Personal history of malignant neoplasm of breast; Z79.02 Long term (current) use of antithrombotics/antiplatelets; Z95.0 Presence of cardiac pacemaker; Z95.1 Presence of aortocoronary bypass graft; Z95.5 Presence of coronary angioplasty implant and graft
CPT/HCPCS: 36415; 71045 ×2; 80053; 81001; 83605 ×2; 85025; 87040 ×2; 87086; 93005; 96361; 96374; 99284; 99285; A9270; J3370; J7030 ×2; J7040; 80048; 85027; 93010; J7050

== ENCOUNTER 2020-02-07 22:09 | Inpatient (IN) | payer MEDICARE ==
--- NOTE | 2020-02-07 22:33 | EDM.PDOC ---
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 Headache Pain Score (Numeric/FACES): 10 - Related Data Allergies Allergy/AdvReac Type Severity Reaction Status Date / Time Iodinated Contrast Media Allergy Anaphylactic Verified 02/07/20 22:32 Shock Latex, Natural Rubber Allergy Hives Verified 02/07/20 22:32 metronidazole [From Flagyl] Allergy Anaphylactic Verified 02/07/20 22:32 Shock morphine Allergy Hives Verified 02/07/20 22:32 Penicillins Allergy Anaphylactic Verified 02/07/20 22:32 Shock Home Meds: Home Meds Aspirin 81 mg PO DAILY 12/26/19 [History] Cholecalciferol (Vitamin D3) [Vitamin D3] 1 cap PO DAILY 12/26/19 [History] Citalopram [Citalopram HBr] 20 mg PO DAILY 12/26/19 [History] Furosemide [Lasix] 40 mg PO DAILY PRN 12/26/19 [History] Metoprolol Succinate [Toprol XL] 25 mg PO DAILY 12/26/19 [History] Multivitamin [Multi-Vitamin Daily] 1 tab PO DAILY 12/26/19 [History] Pregabalin 150 mg PO BEDTIME 12/26/19 [History] Rosuvastatin Calcium 40 mg PO BEDTIME 12/26/19 [History] Ubidecarenone/Vitamin E [Co Q-10 50 MG Softgel] 1 each PO DAILY 12/26/19 [ History] metFORMIN [Glucophage] 1,000 mg PO BIDMEALS 12/26/19 [History] Lactobacillus Rhamnosus GG [Culturelle] 1 cap PO BID #60 cap 12/28/19 [Rx] Calcium Carb/D3/Magnesium/Zinc [Jonathan Mag Zinc + D3] 3 tab PO DAILY 02/07/20 [ History] Pantoprazole [ProTONIX] 1 tab PO DAILY 02/07/20 [History] Past Medical History HEENT 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: Impaired Vision, Other (See Below) Other HEENT History: wears dentures Cardiovascular 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: Arrhythmia, CAD, [place] 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 WELDER 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: Endocrine/Metabolic 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: Diabetes, Type I Oncologic (Cancer) 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: Breast Dermatologic 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: Cellulitis - Past Surgical History Cardiovascular Surgical 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: Coronary Artery Bypass, Coronary Artery Stent, Pacer Female Surgical 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: Hysterectomy, Oophorectomy Oncologic Surgical 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: Mastectomy Social & Family History - Caffeine Use Caffeine Use: Reports: Coffee, Tea ED ROS GENERAL - Review of Systems Review Of Systems: See Below Constitutional: Reports: Chills, Malaise Respiratory: Reports: Shortness of Breath, Cough Cardiovascular: Denies: Chest Pain GI/Abdominal: Reports: Abdominal Pain (generalized) : Denies: Dysuria Neurological: Reports: Headache Psychiatric: Reports: No Symptoms ED EXAM, GENERAL - Physical Exam Exam: See Below Exam Limited By: No Limitations General Appearance: Alert, Anxious, Moderate Distress Ears: Normal External Exam, Normal TMs Nose: Normal Inspection, Normal Mucosa Throat/Mouth: Normal Inspection, Normal Lips, Normal Teeth Head: Atraumatic Neck: Normal Inspection, Supple, Non-Tender Respiratory/Chest: Other (Tachypnea. Difficulty finishing simple sentences.) GI/Abdominal: Other (Generalized tenderness) Extremities: Normal Inspection, Normal Range of Motion Neurological: Alert, Oriented Skin Exam: Warm, Dry, No Rash Course - Vital Signs Text/Narrative:: At 12:30 the patient has spiked fever and is now tachycardic. Reexamination now shows a 9 cm area her right upper arm which is erythematous and quite hot to touch. There are no vesicles or pustules seen. There is no entry wound. She is allergic to penicillin so we'll order an initial dose of clindamycin. At 00:45 I discussed the patient with hospitalist, Dr. Walker Last Recorded V/S: Last Vital Signs Temp 37.7 C 02/08/20 00:21 Pulse 94 02/08/20 00:21 Resp 20 02/08/20 00:21 BP 131/64 02/08/20 00:21 Pulse Ox 93 L 02/08/20 00:21 - Orders/Labs/Meds Orders: Active Orders 24 hr Category Date Time Status Chest 2V [CR] Urgent Exams 06/08/20 00:01 Taken CORONAVIRUS COVID-19, [facility] Lab 02/07/20 22:48 Ordered CULTURE BLOOD [BC] Stat Lab 02/07/20 23:05 Received CULTURE BLOOD [BC] Stat Lab 02/07/20 23:15 Received Sodium Chloride 0.9% [Normal Saline] 1,000 ml Med 02/08/20 01:03 Active IV .BOLUS Isolation [COMM] Routine Oth 02/07/20 22:47 Ordered Medication Orders Sodium Chloride (Normal Saline) 1,000 mls @ 999 mls/hr IV .BOLUS ONE Stop: 02/08/20 02:03 Labs: Laboratory Tests 02/07/20 02/07/20 02/07/20 Range/Units 22:55 22:55 22:55 WBC 14.7 H (4.5-11.0) K/uL RBC 4.04 (3.30-5.50) M/uL Hgb 10.7 L (12.0-15.0) g/dL Hct 35.3 L (36.0-48.0) % MCV 87 (80-98) fL MCH 27 (27-31) pg MCHC 30 L (32-36) % Plt Count 204 (150-400) K/uL PT (9.5-12.0) sec INR (0.80-1.20) Sodium 135 L (140-148) mmol/L Potassium 4.3 (3.6-5.2) mmol/L Chloride 99 L (100-108) mmol/L Carbon Dioxide 26 (21-32) mmol/L Anion Gap 14.3 H (5.0-14.0) mmol/L BUN 21 H D (7-18) mg/dL Creatinine 1.7 H D (0.6-1.0) mg/dL Est Cr Clr Drug Dosing 24.01 mL/min Estimated GFR (MDRD) 30 L (>60) Glucose 108 H (74-106) mg/dL Lactic Acid (0.4-2.0) mmol/L Calcium 8.6 (8.5-10.1) mg/dL Total Bilirubin 0.7 (0.2-1.0) mg/dL AST 24 (15-37) U/L ALT 19 (12-78) U/L Alkaline Phosphatase 101 (46-116) U/L Troponin I < 0.017 (0.000-0.056) ng/mL Total Protein 7.0 (6.4-8.2) g/dL Albumin 3.6 (3.4-5.0) g/dL Globulin 3.4 (2.3-3.5) g/dL Albumin/Globulin Ratio 1.1 L (1.2-2.2) Lipase 198 (73-393) U/L Urine Color (YELLOW) Urine Appearance (CLEAR) Urine pH (5.0-8.0) Ur Specific [place] (1.008-1.030) Urine Protein (NEGATIVE) mg/dL Urine Glucose (UA) (NEGATIVE) mg/dL Urine Ketones (NEGATIVE) mg/dL Urine Occult Blood (NEGATIVE) Urine Nitrite (NEGATIVE) Urine Bilirubin (NEGATIVE) Urine Urobilinogen (0.2-1.0) EU/dL Ur Leukocyte Esterase (NEGATIVE) Urine RBC (0-5) Urine WBC (0-5) Ur Epithelial Cells Amorphous Sediment Urine Bacteria Urine Mucus 02/07/20 02/07/20 02/08/20 Range/Units 23:15 23:15 00:21 WBC (4.5-11.0) K/uL RBC (3.30-5.50) M/uL Hgb (12.0-15.0) g/dL Hct (36.0-48.0) % MCV (80-98) fL MCH (27-31) pg MCHC (32-36) % Plt Count (150-400) K/uL PT 10.8 (9.5-12.0) sec INR 1.00 (0.80-1.20) Sodium (140-148) mmol/L Potassium (3.6-5.2) mmol/L Chloride (100-108) mmol/L Carbon Dioxide (21-32) mmol/L Anion Gap (5.0-14.0) mmol/L BUN (7-18) mg/dL Creatinine (0.6-1.0) mg/dL Est Cr Clr Drug Dosing mL/min Estimated GFR (MDRD) (>60) Glucose (74-106) mg/dL Lactic Acid 1.6 (0.4-2.0) mmol/L Calcium (8.5-10.1) mg/dL Total Bilirubin (0.2-1.0) mg/dL AST (15-37) U/L ALT (12-78) U/L Alkaline Phosphatase (46-116) U/L Troponin I (0.000-0.056) ng/mL Total Protein (6.4-8.2) g/dL Albumin (3.4-5.0) g/dL Globulin (2.3-3.5) g/dL Albumin/Globulin Ratio (1.2-2.2) Lipase (73-393) U/L Urine Color Yellow (YELLOW) Urine Appearance Cloudy A (CLEAR) Urine pH 7.0 (5.0-8.0) Ur Specific [place] 1.020 (1.008-1.030) Urine Protein 100 H (NEGATIVE) mg/dL Urine Glucose (UA) Negative (NEGATIVE) mg/dL Urine Ketones Trace H (NEGATIVE) mg/dL Urine Occult Blood Trace-intact H (NEGATIVE) Urine Nitrite Negative (NEGATIVE) Urine Bilirubin Negative (NEGATIVE) Urine Urobilinogen 0.2 (0.2-1.0) EU/dL Ur Leukocyte Esterase Large H (NEGATIVE) Urine RBC 5-10 H (0-5) Urine WBC >100 H (0-5) Ur Epithelial Cells Few Amorphous Sediment Not seen Urine Bacteria Many Urine Mucus Not seen Meds: Medications Generic Name Dose Route Start Last Admin Trade Name Freq PRN Reason Stop Dose Admin Sodium Chloride 1,000 mls @ 999 mls/hr 02/08/20 01:03 Normal Saline IV 02/08/20 02:03 .BOLUS ONE Discontinued Medications Generic Name Dose Route Start Last Admin Trade Name Freq PRN Reason Stop Dose Admin Acetaminophen 650 mg 02/08/20 00:31 Tylenol PO 02/08/20 00:32 NOW ONE Hydromorphone HCl 0.5 mg 02/07/20 22:49 02/07/20 23:10 Dilaudid IVPUSH 02/07/20 22:50 0.5 mg ONETIME ONE Administration Sodium Chloride 1,000 mls @ 999 mls/hr 02/07/20 22:49 02/07/20 23:09 Normal Saline IV 02/07/20 23:49 999 mls/hr .BOLUS ONE Administration Clindamycin Phosphate 600 mg/ 54 mls @ 100 mls/hr 02/08/20 00:30 Sodium Chloride IV 02/08/20 01:02 ONETIME ONE Ondansetron HCl 4 mg 02/07/20 22:54 02/07/20 23:10 Zofran IVPUSH 02/07/20 22:55 4 mg ONETIME ONE Administration Departure - Departure Clinical Impression: Cellulitis Qualifiers: Site of cellulitis: extremity Site of cellulitis of extremity: upper extremity Laterality: right Qualified Code(s): L03.113 - Cellulitis of right upper limb Sepsis Qualifiers: Sepsis type: sepsis due to unspecified organism Sepsis acute organ dysfunction status: without acute organ dysfunction Qualified Code(s): A41.9 - Sepsis, unspecified organism - Discharge Information Referrals: PCP,None [Primary Care Provider] - Forms: ED Department Discharge Sepsis Event Note - Focused Exam Vital Signs: Vital Signs Temp Pulse Resp BP Pulse Ox 02/08/20 00:21 37.7 C 94 20 131/64 93 L 02/07/20 23:16 78 18 96/45 L 98 02/07/20 22:30 37.7 C 85 20 135/63 99 Date Exam was Performed: 02/08/20 Time Exam was Performed: 01:28 - My Orders Last 24 Hours: My Active Orders 02/07/20 22:47 Isolation [COMM] Routine 02/07/20 22:48 CORONAVIRUS COVID-19, [facility] Urgent 02/07/20 23:05 CULTURE BLOOD [BC] Stat 02/07/20 23:15 CULTURE BLOOD [BC] Stat 02/08/20 00:01 Chest 2V [CR] Urgent 02/08/20 01:03 Sodium Chloride 0.9% [Normal Saline] 1,000 ml IV .BOLUS - Assessment/Plan Last 24 Hours: My Active Orders 02/07/20 22:47 Isolation [COMM] Routine 02/07/20 22:48 CORONAVIRUS COVID-19, [facility] Urgent 02/07/20 23:05 CULTURE BLOOD [BC] Stat 02/07/20 23:15 CULTURE BLOOD [BC] Stat 02/08/20 00:01 Chest 2V [CR] Urgent 02/08/20 01:03 Sodium Chloride 0.9% [Normal Saline] 1,000 ml IV .BOLUS
[2020-02-07] MEDS ORDERED: HYDROmorphone 0.5 MG/0.5 ML Syringe IVPUSH ONE (22:49)
[2020-02-07] MEDS ORDERED: Sodium Chloride 0.9% 1,000 ML IV ONE (22:49)
[2020-02-07] MEDS ORDERED: Ondansetron 4 MG/2 ML SDV IVPUSH ONE (22:54)
[2020-02-08] MEDS ORDERED: Acetaminophen 325 MG Tab PO ONE (00:31)
[2020-02-08] MEDS ORDERED: Sodium Chloride 0.9% 1,000 ML IV ONE (01:03)
[2020-02-08] MEDS ORDERED: Ondansetron 4 MG/2 ML SDV IV PRN (01:51)
[2020-02-08] MEDS ORDERED: Furosemide 40 MG Tab PO PRN (02:00)
[2020-02-08] MEDS ORDERED: Ibuprofen 400 MG Tab PO ONE (03:02)
--- NOTE | 2020-02-08 03:08 | HP ---
CHIEF COMPLAINT: Fever and chills. HPI: A 69-year-old who has had 4 episodes in the past of cellulitis of her right arm thought to be possibly secondary to right mastectomy that she had in the past for breast cancer. Her last episode where she was admitted here to [facility] in [place] was in December with similar complaints. She has been doing some work outside in the garden and in the last couple of days, she just has not felt well. Today, developed fever and shaking chills that she has experienced before with this. She has not really noticed much of a rash or erythema, but has had some swelling of her right arm the last couple of days. It sounds like she has had problems with lymphedema in that arm in the past. Came into the emergency room for further evaluation. Initially, when the emergency room doctor looked at her right arm, really did not have any erythema and then developed as she was here. She was noted to have an elevated white count and also bacteria in her urine, but having no urine symptoms. She does have some epigastric pain and has had problems with reflux in the past that she does take medication for. She has had nausea without vomiting. No diarrhea. She has had 2 normal bowel movements today. No bloody black stools. She has had a cough, but she thinks it is due to signs of some allergies, which she is prone to. She has not lost any taste or smell. No known exposure to COVID and has not done any traveling, although her kids did come see her and there is some potential that the daughter works in that type of setting. PAST MEDICAL HISTORY: 1. Right mastectomy with lymphedema. 2. Coronary artery disease. It sounds like she has possibly had stents in the past. It is difficult to say based on her history. She has had aortic valve replacement with what sounds like a porcine valve because she has not been on anticoagulation. She was on Plavix and then has been just on aspirin. It sounds like she has maybe had coronary bypass grafting, stenting. She also has had a pacemaker. 3. Hysterectomy with oophorectomy. 4. She has had a history of diabetes. 5. Cholecystectomy. 6. She has chronic right rotator cuff tear without repair. 7. Also had carpal tunnel. MEDICATIONS: Aspirin 81 mg daily, calcium with vitamin D, vitamin D3, citalopram 20 mg daily, furosemide 40 mg daily, lactobacillus 1 capsule b.i.d., metformin 1000 mg at bedtime, metoprolol XL 25 mg daily, multivitamin, pantoprazole 40 mg daily, pregabalin 150 mg at bedtime, rosuvastatin 40 mg daily at bedtime, vitamin E daily. ALLERGIES: IODINATED CONTRAST MATERIAL, LATEX, RUBBER, PENICILLIN WHERE SHE HAD AN ANAPHYLACTIC REACTION IT SOUNDS LIKE. SOCIAL HISTORY: Has never smoked. No alcohol use. FAMILY HISTORY: Mother has colon cancer. REVIEW OF SYSTEMS: CONSTITUTIONAL: She has had a headache. No vision changes. She has had some postnasal drip and productive cough that she thinks is due to allergies which she is prone to. No chest pain, shortness of breath. She has had some epigastric pain and nausea without vomiting. No diarrhea, constipation, bloody or black stools. Denies any dysuria or hematuria. No swelling in her legs. She does have the swelling and erythema of her right arm which just developed while she was in the emergency room. NEUROLOGIC: No neurologic complaints reported other than the headache. OBJECTIVE: VITAL SIGNS: Temperature initially was 37.7, now 38.1; pulse 78 to 95; blood pressure 96/45 to 107/50, respirations 18 to 20, O2 saturation 98% on room air. GENERAL: Alert and oriented. HEENT: Pharynx is clear. NECK: Supple. No adenopathy, thyromegaly, JVD, carotid bruits. LUNGS: Clear. HEART: Regular rate. Grade 3/6 systolic murmur. ABDOMEN: She did have some epigastric discomfort and she felt a little bit bloated, but was not overly distended. No mass, organomegaly palpated. LOWER EXTREMITIES: No edema, erythema. She states that she aches all over. Her right arm does have erythema and some swelling from the shoulder, axilla area all the way down to her wrist, apparently was not there when she 1st arrived, but now present. She does have discomfort and some swelling and induration on the underside of the right arm. NEUROLOGIC: Cranial nerves II through XII grossly intact. Alert and oriented. LABORATORY DATA: White count elevated at 14.7, hemoglobin 10.7. INR was 1.00. Sodium 135, potassium 4.3, BUN was 21, creatinine 1.7, glucose 108. Liver functions were normal. Lactic acid was normal at 1.6. Lipase was normal at 198. Urinalysis showed greater than 100 white cells. Culture is pending. Blood culture is pending. Influenza A and B were negative. I believe that she was swabbed for COVID in the ER also, which is pending. ASSESSMENT: 1. Sepsis secondary to right arm cellulitis, which she has had 4 other episodes in the past including an episode here in December. The patient was started on IV clindamycin in the emergency room, which we will continue. 2. Possible urinary tract infection with pyuria. Cultures pending. I did start Cipro for this IV. 3. Coronary artery disease with stenting, possible bypass surgery. She did have open heart surgery she thinks for aortic valve replacement with what sounds like a porcine valve. Said she has not been on anticoagulation. 4. Breast cancer on the right side with mastectomy. 5. Type 2 diabetes mellitus. We will admit her inpatient. Anticipate more than 2 midnight stays. Transfer care to the Hospitalist Service in the morning. Trey Walker MD /[id number]
[2020-02-08] MEDS: Ciprofloxacin in D5W 400 MG in Premix Bag 1 BAG IV SCH ×4 (03:18→13:19)
[2020-02-08] MEDS: Sodium Chloride 0.9% 1,000 ML IV SCH ×3 (06:20→19:38)
[2020-02-08] MEDS ORDERED: Sodium Chloride 0.9% 1,000 ML IV STA (08:44)
[2020-02-08] MEDS ORDERED: Vancomycin 1 GM SDV IV SCH (09:00)
[2020-02-08] MEDS: Pantoprazole 40 MG Tab.CR PO SCH (09:01)
[2020-02-08] MEDS: metFORMIN 500 MG Tab PO SCH ×2 (09:01→17:11)
[2020-02-08] MEDS: Citalopram 20 MG Tab PO SCH (09:01)
[2020-02-08] MEDS: Aspirin 81 MG Tab.Chew PO SCH (09:01)
[2020-02-08] MEDS: Cholecalciferol (Vitamin D3) 25 MCG Tab PO SCH (09:02)
[2020-02-08] MEDS: Lactobacillus Rhamnosus GG (Probiotic) Cap PO SCH ×2 (09:02→20:41)
[2020-02-08] MEDS: Multivitamins with Iron/Calcium/Folic Acid/Minerals Tab PO SCH (09:02)
[2020-02-08] MEDS: Metoprolol Succinate 25 MG Tab.ER PO SCH (09:34)
[2020-02-08] MEDS ORDERED: Norepinephrine 4 MG in Dextrose 5% in Water 246 ML IV SCH ×2 (09:45)
[2020-02-08] MEDS: Acetaminophen 325 MG Tab PO PRN ×3 (09:59→21:22)
[2020-02-08] MEDS ORDERED: 50% Dextrose in Water 50 ML Syringe IV PRN (10:06)
[2020-02-08] MEDS ORDERED: Glucose Gel 15 GM in 37.5 GM Tube PO PRN (10:06)
--- NOTE | 2020-02-08 10:12 | PCM.PN ---
- General Info Date of Service: 02/08/20 Subjective Update: Ms. Burleson is a 69-year-old woman who was admitted early this morning by Dr. Walker with sepsis and cellulitis of the right upper extremity. She is status post right mastectomy done for breast carcinoma and has had some ongoing difficulty with lymphedema. She has had previous episodes of cellulitis of her right upper extremity related to this. Most recent episode was in December of this year when she was hospitalized at this facility. There was also some question of possible urinary tract infection noted on admission. She does have a history of anaphylaxis related to use of penicillin. In the night has continued to experience hypotension related to sepsis despite fluid boluses. Functional Status: Reports: Tolerating Diet, Ambulating, Urinating - Review of Systems General: Reports: Fever, Weakness, Chills Pulmonary: Reports: No Symptoms Cardiovascular: Reports: No Symptoms Gastrointestinal: Reports: No Symptoms Skin: Reports: Other (Cellulitis right arm) - Patient Data Vitals - Most Recent: Last Vital Signs Temp 98.1 F 02/08/20 07:49 Pulse 69 02/08/20 09:34 Resp 14 02/08/20 07:49 BP 80/48 L 02/08/20 09:34 Pulse Ox 97 02/08/20 07:49 Weight - Most Recent: 175 lb I&O - Last 24 Hours: Intake & Output 02/07/20 02/08/20 02/08/20 22:59 06:59 14:59 Intake Total 588 Balance 588 Lab Results Last 24 Hours: Laboratory Results - last 24 hr 02/07/20 02/07/20 02/07/20 Range/Units 22:55 22:55 22:55 WBC 14.7 H (4.5-11.0) K/uL RBC 4.04 (3.30-5.50) M/uL Hgb 10.7 L (12.0-15.0) g/dL Hct 35.3 L (36.0-48.0) % MCV 87 (80-98) fL MCH 27 (27-31) pg MCHC 30 L (32-36) % Plt Count 204 (150-400) K/uL PT (9.5-12.0) sec INR (0.80-1.20) Sodium 135 L (140-148) mmol/L Potassium 4.3 (3.6-5.2) mmol/L Chloride 99 L (100-108) mmol/L Carbon Dioxide 26 (21-32) mmol/L Anion Gap 14.3 H (5.0-14.0) mmol/L BUN 21 H D (7-18) mg/dL Creatinine 1.7 H D (0.6-1.0) mg/dL Est Cr Clr Drug Dosing 24.01 mL/min Estimated GFR (MDRD) 30 L (>60) Glucose 108 H (74-106) mg/dL Lactic Acid (0.4-2.0) mmol/L Calcium 8.6 (8.5-10.1) mg/dL Total Bilirubin 0.7 (0.2-1.0) mg/dL AST 24 (15-37) U/L ALT 19 (12-78) U/L Alkaline Phosphatase 101 (46-116) U/L Troponin I < 0.017 (0.000-0.056) ng/mL Total Protein 7.0 (6.4-8.2) g/dL Albumin 3.6 (3.4-5.0) g/dL Globulin 3.4 (2.3-3.5) g/dL Albumin/Globulin Ratio 1.1 L (1.2-2.2) Lipase 198 (73-393) U/L Urine Color (YELLOW) Urine Appearance (CLEAR) Urine pH (5.0-8.0) Ur Specific [place] (1.008-1.030) Urine Protein (NEGATIVE) mg/dL Urine Glucose (UA) (NEGATIVE) mg/dL Urine Ketones (NEGATIVE) mg/dL Urine Occult Blood (NEGATIVE) Urine Nitrite (NEGATIVE) Urine Bilirubin (NEGATIVE) Urine Urobilinogen (0.2-1.0) EU/dL Ur Leukocyte Esterase (NEGATIVE) Urine RBC (0-5) Urine WBC (0-5) Ur Epithelial Cells Amorphous Sediment Urine Bacteria Urine Mucus 02/07/20 02/07/20 02/08/20 Range/Units 23:15 23:15 00:21 WBC (4.5-11.0) K/uL RBC (3.30-5.50) M/uL Hgb (12.0-15.0) g/dL Hct (36.0-48.0) % MCV (80-98) fL MCH (27-31) pg MCHC (32-36) % Plt Count (150-400) K/uL PT 10.8 (9.5-12.0) sec INR 1.00 (0.80-1.20) Sodium (140-148) mmol/L Potassium (3.6-5.2) mmol/L Chloride (100-108) mmol/L Carbon Dioxide (21-32) mmol/L Anion Gap (5.0-14.0) mmol/L BUN (7-18) mg/dL Creatinine (0.6-1.0) mg/dL Est Cr Clr Drug Dosing mL/min Estimated GFR (MDRD) (>60) Glucose (74-106) mg/dL Lactic Acid 1.6 (0.4-2.0) mmol/L Calcium (8.5-10.1) mg/dL Total Bilirubin (0.2-1.0) mg/dL AST (15-37) U/L ALT (12-78) U/L Alkaline Phosphatase (46-116) U/L Troponin I (0.000-0.056) ng/mL Total Protein (6.4-8.2) g/dL Albumin (3.4-5.0) g/dL Globulin (2.3-3.5) g/dL Albumin/Globulin Ratio (1.2-2.2) Lipase (73-393) U/L Urine Color Yellow (YELLOW) Urine Appearance Cloudy A (CLEAR) Urine pH 7.0 (5.0-8.0) Ur Specific [place] 1.020 (1.008-1.030) Urine Protein 100 H (NEGATIVE) mg/dL Urine Glucose (UA) Negative (NEGATIVE) mg/dL Urine Ketones Trace H (NEGATIVE) mg/dL Urine Occult Blood Trace-intact H (NEGATIVE) Urine Nitrite Negative (NEGATIVE) Urine Bilirubin Negative (NEGATIVE) Urine Urobilinogen 0.2 (0.2-1.0) EU/dL Ur Leukocyte Esterase Large H (NEGATIVE) Urine RBC 5-10 H (0-5) Urine WBC >100 H (0-5) Ur Epithelial Cells Few Amorphous Sediment Not seen Urine Bacteria Many Urine Mucus Not seen 02/08/20 02/08/20 02/08/20 Range/Units 04:00 04:00 04:00 WBC 18.3 H (4.5-11.0) K/uL RBC 3.63 (3.30-5.50) M/uL Hgb 9.8 L (12.0-15.0) g/dL Hct 31.9 L (36.0-48.0) % MCV 88 (80-98) fL MCH 27 (27-31) pg MCHC 31 L (32-36) % Plt Count 177 (150-400) K/uL PT (9.5-12.0) sec INR (0.80-1.20) Sodium 135 L (140-148) mmol/L Potassium 3.6 (3.6-5.2) mmol/L Chloride 100 (100-108) mmol/L Carbon Dioxide 26 (21-32) mmol/L Anion Gap 12.6 (5.0-14.0) mmol/L BUN 18 (7-18) mg/dL Creatinine 1.4 H (0.6-1.0) mg/dL Est Cr Clr Drug Dosing 29.15 mL/min Estimated GFR (MDRD) 37 L (>60) Glucose 130 H (74-106) mg/dL Lactic Acid 1.2 (0.4-2.0) mmol/L Calcium 8.1 L (8.5-10.1) mg/dL Total Bilirubin (0.2-1.0) mg/dL AST (15-37) U/L ALT (12-78) U/L Alkaline Phosphatase (46-116) U/L Troponin I (0.000-0.056) ng/mL Total Protein (6.4-8.2) g/dL Albumin (3.4-5.0) g/dL Globulin (2.3-3.5) g/dL Albumin/Globulin Ratio (1.2-2.2) Lipase (73-393) U/L Urine Color (YELLOW) Urine Appearance (CLEAR) Urine pH (5.0-8.0) Ur Specific [place] (1.008-1.030) Urine Protein (NEGATIVE) mg/dL Urine Glucose (UA) (NEGATIVE) mg/dL Urine Ketones (NEGATIVE) mg/dL Urine Occult Blood (NEGATIVE) Urine Nitrite (NEGATIVE) Urine Bilirubin (NEGATIVE) Urine Urobilinogen (0.2-1.0) EU/dL Ur Leukocyte Esterase (NEGATIVE) Urine RBC (0-5) Urine WBC (0-5) Ur Epithelial Cells Amorphous Sediment Urine Bacteria Urine Mucus [place]er Results Last 24 Hours: Microbiology 02/07/20 23:16 Influenza Type A Antigen Screen - Final Nasopharyngeal Swab NEGATIVE INFLUENZA A VIRUS AG REFERENCE RANGE: NEGATIVE Influenza Type B Antigen Screen - Final NEGATIVE INFLUENZA B VIRUS AG REFERENCE RANGE: NEGATIVE Med Orders - Current: Current Medications Acetaminophen (Tylenol) 650 mg PO Q4H PRN PRN Reason: Pain (Mild 1-3)/fever Last Admin: 02/08/20 09:59 Dose: 650 mg Aspirin (Aspirin) 81 mg PO DAILY [facility] Last Admin: 02/08/20 09:01 Dose: 81 mg Cholecalciferol (Vitamin D3) 50 mcg PO DAILY [facility] Last Admin: 02/08/20 09:02 Dose: 50 mcg Citalopram Hydrobromide (Celexa) 20 mg PO DAILY [facility] Last Admin: 02/08/20 09:01 Dose: 20 mg Dextrose (Glutose 15) 15 gm PO ONETIME PRN PRN Reason: Hypoglycemia Dextrose/Water (Dextrose 50% In Water) 50 ml IV ONETIME PRN PRN Reason: Hypoglycemia Furosemide (Lasix) 40 mg PO DAILY PRN PRN Reason: retention Sodium Chloride (Normal Saline) 1,000 mls @ 125 mls/hr IV ASDIRECTED [facility] Last Admin: 02/08/20 06:20 Dose: 125 mls/hr Ciprofloxacin/Dextrose 400 mg/ (Premix) 200 mls @ 200 mls/hr IV Q12H [facility] Last Admin: 02/08/20 03:18 Dose: 200 mls/hr Sodium Chloride (Normal Saline) 1,000 mls @ 500 mls/hr IV NOW STA Stop: 02/08/20 10:43 Last Admin: 02/08/20 08:59 Dose: 500 mls/hr Vancomycin HCl 1.5 gm/ Sodium (Chloride) 250 mls @ 167 mls/hr IV ONETIME ONE Stop: 02/08/20 11:29 Vancomycin HCl 1.2 gm/ Sodium (Chloride) 250 mls @ 167 mls/hr IV Q24H [facility] Norepinephrine Bitartrate 4 mg (/ Dextrose/Water) 250 mls @ 7.5 mls/hr IV TITRATE [facility]; Protocol Insulin Human Lispro (Humalog) 0 unit SUBCUT QIDACANDBED [facility]; Protocol Lactobacillus Rhamnosus (Culturelle) 1 cap PO BID [facility] Last Admin: 02/08/20 09:02 Dose: 1 cap Metformin HCl (Glucophage) 1,000 mg PO BIDMEALS [facility] Last Admin: 02/08/20 09:01 Dose: 1,000 mg Metoprolol Succinate (Toprol Xl) 25 mg PO DAILY [facility] Last Admin: 02/08/20 09:34 Dose: Not Given Multivitamins/Minerals (Thera M Plus) 1 tab PO DAILY [facility] Last Admin: 02/08/20 09:02 Dose: 1 tab Non-Formulary Medication (Calcium Carb/D3/Magnesium/Zinc [Jonathan Mag Zinc + D3]) 3 tab PO DAILY [facility] Non-Formulary Medication (Ubidecarenone/Vitamin E [Co Q-10 50 Mg Softgel]) 1 each PO DAILY [facility] Ondansetron HCl (Zofran) 4 mg IV Q4H PRN PRN Reason: Nausea/Vomiting Last Admin: 02/08/20 06:21 Dose: 4 mg Pantoprazole Sodium (Protonix) 40 mg PO ACBREAKFAST [facility] Last Admin: 02/08/20 09:01 Dose: 40 mg Pregabalin (Lyrica) 150 mg PO BEDTIME [facility] Rosuvastatin Calcium (Crestor) 40 mg PO BEDTIME [facility] Discontinued Medications Acetaminophen (Tylenol) 650 mg PO NOW ONE Stop: 02/08/20 00:32 Last Admin: 02/08/20 01:30 Dose: 650 mg Hydromorphone HCl (Dilaudid) 0.5 mg IVPUSH ONETIME ONE Stop: 02/07/20 22:50 Last Admin: 02/07/20 23:10 Dose: 0.5 mg Sodium Chloride (Normal Saline) 1,000 mls @ 999 mls/hr IV .BOLUS ONE Stop: 02/07/20 23:49 Last Admin: 02/07/20 23:09 Dose: 999 mls/hr Clindamycin Phosphate 600 mg/ (Sodium Chloride) 54 mls @ 100 mls/hr IV ONETIME ONE Stop: 02/08/20 01:02 Last Admin: 02/08/20 01:35 Dose: 100 mls/hr Sodium Chloride (Normal Saline) 1,000 mls @ 999 mls/hr IV .BOLUS ONE Stop: 02/08/20 02:03 Last Admin: 02/08/20 01:31 Dose: 999 mls/hr Clindamycin Phosphate 600 mg/ (Sodium Chloride) 54 mls @ 100 mls/hr IV Q8H [facility] Ibuprofen (Motrin) 400 mg PO ONETIME ONE Stop: 02/08/20 03:03 Last Admin: 02/08/20 03:21 Dose: 400 mg Ondansetron HCl (Zofran) 4 mg IVPUSH ONETIME ONE Stop: 02/07/20 22:55 Last Admin: 02/07/20 23:10 Dose: 4 mg Vancomycin HCl (Vancomycin) 1 gm IV .PHARMACY TO DOSE [facility] Stop: 02/08/20 10:00 - Exam Quality Assessment: DVT Prophylaxis General: Alert, Oriented, Cooperative, Mild Distress Lungs: Clear to Auscultation, Normal Respiratory Effort Cardiovascular: Regular Rate, Regular Rhythm, Murmurs GI/Abdominal Exam: Soft, Non-Tender, No Organomegaly, No Distention Extremities: Non-Tender, No Pedal Edema Skin: Other (Cellulitis right upper extremity with erythema and increased warmth ) Sepsis Event Note - Evaluation Sepsis Screening Result: No Definite Risk - Focused Exam Vital Signs: Vital Signs Temp Temp Pulse Pulse Resp BP BP 02/08/20 09:34 69 80/48 L 02/08/20 07:49 98.1 F 69 14 73/42 L 02/08/20 04:42 99.5 F 02/08/20 04:21 98.5 F 02/08/20 03:21 103.2 F H 02/08/20 03:17 02/08/20 02:54 103.2 F H 89 28 H 84/37 L 02/08/20 01:34 100.6 F 95 20 107/50 L 02/08/20 01:30 100.6 F 02/08/20 01:20 91 20 86/27 L 02/08/20 00:21 100 F 94 20 131/64 02/07/20 23:16 78 18 96/45 L 02/07/20 22:30 99.9 F 85 20 135/63 Pulse Ox Pulse Ox 02/08/20 09:34 02/08/20 07:49 97 02/08/20 04:42 02/08/20 04:21 02/08/20 03:21 02/08/20 03:17 92 L 02/08/20 02:54 89 L 02/08/20 01:34 98 02/08/20 01:30 02/08/20 01:20 97 02/08/20 00:21 93 L 02/07/20 23:16 98 02/07/20 22:30 99 Date Exam was Performed: 02/08/20 Time Exam was Performed: 10:18 - Problem List Review Problem List Initiated/Reviewed/Updated: Yes - My Orders Last 24 Hours: My Active Orders 02/08/20 08:44 Sodium Chloride 0.9% [Normal Saline] 1,000 ml IV NOW 02/08/20 09:40 Patient Status [ADT] Routine 02/08/20 09:45 Norepinephrine [Levophed] 4 mg Dextrose 5% in Water 246 ml IV TITRATE 02/08/20 10:00 Vancomycin 1.5 gm Sodium Chloride 0.9% [Normal Saline] 250 ml IV ONETIME 02/08/20 10:06 Blood Glucose Check, Bedside [RC] QIDACANDBED Communication Order [RC] STAT Diabetes Education [RC] Click to Edit Notify Provider [RC] PRN Dextrose 50% in Water 50 ml IV ONETIME PRN Dextrose [Glutose 15] 15 gm PO ONETIME PRN 02/08/20 11:00 Insulin Lispro [HumaLOG] See Protocol SUBCUT QIDACANDBED 02/08/20 11:30 GLUCOSE POC LAB TO COLLECT [POC] QIDACANDBED 02/08/20 16:30 GLUCOSE POC LAB TO COLLECT [POC] QIDACANDBED 02/08/20 21:00 GLUCOSE POC LAB TO COLLECT [POC] QIDACANDBED 02/09/20 05:00 BASIC METABOLIC PANEL,BMP [CHEM] Timed CBC WITH AUTO DIFF [HEME] Timed 02/09/20 07:30 GLUCOSE POC LAB TO COLLECT [POC] QIDACANDBED 02/09/20 10:00 Vancomycin 1.2 gm Sodium Chloride 0.9% [Normal Saline] 250 ml IV Q24H 02/09/20 11:30 GLUCOSE POC LAB TO COLLECT [POC] QIDACANDBED 02/09/20 16:30 GLUCOSE POC LAB TO COLLECT [POC] QIDACANDBED 02/09/20 21:00 GLUCOSE POC LAB TO COLLECT [POC] QIDACANDBED 02/10/20 07:30 GLUCOSE POC LAB TO COLLECT [POC] QIDACANDBED 02/10/20 11:30 GLUCOSE POC LAB TO COLLECT [POC] QIDACANDBED 02/10/20 16:30 GLUCOSE POC LAB TO COLLECT [POC] QIDACANDBED 02/10/20 21:00 GLUCOSE POC LAB TO COLLECT [POC] QIDACANDBED 02/11/20 07:30 GLUCOSE POC LAB TO COLLECT [POC] QIDACANDBED 02/11/20 11:30 GLUCOSE POC LAB TO COLLECT [POC] QIDACANDBED 02/11/20 16:30 GLUCOSE POC LAB TO COLLECT [POC] QIDACANDBED 02/11/20 21:00 GLUCOSE POC LAB TO COLLECT [POC] QIDACANDBED 02/12/20 07:30 GLUCOSE POC LAB TO COLLECT [POC] QIDACANDBED 02/12/20 11:30 GLUCOSE POC LAB TO COLLECT [POC] QIDACANDBED 02/12/20 16:30 GLUCOSE POC LAB TO COLLECT [POC] QIDACANDBED 02/12/20 21:00 GLUCOSE POC LAB TO COLLECT [POC] QIDACANDBED 02/13/20 07:30 GLUCOSE POC LAB TO COLLECT [POC] QIDACANDBED - Plan Plan:: ASSESSMENT AND PLAN CELLULITIS OF THE RIGHT UPPER EXTREMITY WITH SEPSIS-recurrent episodes likely secondary to lymphedema of the arm following mastectomy. Pressure has remained low despite fluid boluses. -Transfer to ICU -IV norepinephrine to maintain MAP of greater than 65 -Discontinue clindamycin -Vancomycin, pharmacy to dose -Continue IV fluids -Blood cultures pending POSSIBLE URINARY TRACT INFECTION -Urine culture pending -Continue ciprofloxacin CORONARY ARTERY DISEASE-currently asymptomatic -Hold blood pressure lowering medications until sepsis has resolved HISTORY OF RIGHT BREAST CARCINOMA STATUS POST MASTECTOMY TYPE 2 DIABETES MELLITUS -Continue outpatient medical therapy -4 times daily glucometers -Low-dose sliding scale Humalog MAINTENANCE ISSUES -DVT prophylaxis; Lovenox 40 mg subcu daily -GI prophylaxis; not indicated -Yu catheter; not indicated -Nutrition; consistent carb diet -Nicotine dependence; not required CODE STATUS-FULL CODE ADMISSION STATUS-patient will be admitted to inpatient status, expect at least a 2 night hospital stay for evaluation and management of problems as outlined above. At the time of this admission I do not reasonably expected evaluation and management of this problem will require more than a 96 hour hospital stay. DISPOSITION-anticipate discharge to home after the hospital stay. PRIMARY CARE PROVIDER-
--- NOTE | 2020-02-08 10:12 | CR ---
CHEST: 2 view CLINICAL HISTORY:SOB, fever COMPARISON:12/26/2019 FINDINGS: Heart size is normal. There is some mild pulmonary vascular cephalization. Patient has had previous sternotomy as well as the ascending aortic stent and aortic valve. Pulmonary vascularity is normal. Patient is a permanent cardiac pacer with sequential leads. No infiltrate or effusion is identified. There is some scarring and/or atelectasis in the left lung base. IMPRESSION: Probably vascular cephalization may represent some pulmonary venous hypertension. Some of this may be chronic. Permanent cardiac pacer Previous sternotomy Previous aortic surgery
[2020-02-08] MEDS: Insulin Lispro 100 Unit/ML 3 ML KwikPen SUBCUT SCH ×3 (12:26→20:39)
[2020-02-08] MEDS: Calcium Carbonate/Vitamin D3 1500 MG-400 Units Tab PO SCH (13:18)
[2020-02-08] MEDS: CO Q10 50 MG PO SCH (13:19)
[2020-02-08] MEDS: Pregabalin 50 MG Cap PO SCH (20:40)
[2020-02-08] MEDS: Rosuvastatin 10 MG Tab PO SCH (20:40)
[2020-02-09] MEDS: Ciprofloxacin in D5W 400 MG in Premix Bag 1 BAG IV SCH ×4 (02:03→13:53)
[2020-02-09] MEDS: Sodium Chloride 0.9% 1,000 ML IV SCH (04:00)
[2020-02-09] MEDS: Pantoprazole 40 MG Tab.CR PO SCH (07:30)
[2020-02-09] MEDS: metFORMIN 500 MG Tab PO SCH ×2 (07:30→17:26)
[2020-02-09] MEDS: Insulin Lispro 100 Unit/ML 3 ML KwikPen SUBCUT SCH ×4 (07:35→20:41)
[2020-02-09] MEDS: Cholecalciferol (Vitamin D3) 25 MCG Tab PO SCH (08:07)
[2020-02-09] MEDS: Acetaminophen 325 MG Tab PO PRN (08:07)
[2020-02-09] MEDS: Calcium Carbonate/Vitamin D3 1500 MG-400 Units Tab PO SCH (08:07)
[2020-02-09] MEDS: Aspirin 81 MG Tab.Chew PO SCH (08:07)
[2020-02-09] MEDS: Lactobacillus Rhamnosus GG (Probiotic) Cap PO SCH ×2 (08:07→20:42)
[2020-02-09] MEDS: Multivitamins with Iron/Calcium/Folic Acid/Minerals Tab PO SCH (08:09)
[2020-02-09] MEDS: Citalopram 20 MG Tab PO SCH (08:10)
[2020-02-09] MEDS: CO Q10 50 MG PO SCH (08:19)
[2020-02-09] MEDS: Metoprolol Succinate 25 MG Tab.ER PO SCH (09:44)
[2020-02-09] MEDS: Vancomycin 1.2 GM in Sodium Chloride 0.9% 250 ML IV SCH (09:46)
--- NOTE | 2020-02-09 10:07 | PCM.PN ---
- General Info Date of Service: 02/09/20 Subjective Update: Ms. Burleson has been stable since yesterday. No longer requiring IV norepinephrine for blood pressure support. Continued swelling and tenderness of the right upper extremity. Functional Status: Reports: Tolerating Diet, Ambulating, Urinating - Review of Systems General: Reports: Weakness, Fatigue. Denies: Fever, Chills Pulmonary: Reports: No Symptoms Cardiovascular: Reports: No Symptoms Gastrointestinal: Reports: No Symptoms Musculoskeletal: Reports: Other (Persistent right arm swelling) - Patient Data Vitals - Most Recent: Last Vital Signs Temp 97.6 F 02/09/20 07:00 Pulse 71 02/09/20 09:44 Resp 14 02/09/20 09:00 BP 103/52 L 02/09/20 09:44 Pulse Ox 94 L 02/09/20 09:00 Orthostatic Blood Pressure [ 103/52 Standing] Orthostatic Blood Pressure [ 97/44 Sitting] Orthostatic Blood Pressure [ 101/49 Supine] Weight - Most Recent: 185 lb 3.013 oz I&O - Last 24 Hours: Intake & Output 02/08/20 02/09/20 02/09/20 22:59 06:59 14:59 Intake Total 1812 1607 800 Output Total 2850 1700 Balance -1038 -93 800 Lab Results Last 24 Hours: Laboratory Results - last 24 hr 02/07/20 02/09/20 02/09/20 Range/Units 22:48 05:30 05:30 WBC 10.0 (4.5-11.0) K/uL RBC 3.66 (3.30-5.50) M/uL Hgb 10.2 L (12.0-15.0) g/dL Hct 31.9 L (36.0-48.0) % MCV 87 (80-98) fL MCH 28 (27-31) pg MCHC 32 (32-36) % Plt Count 139 L (150-400) K/uL Neut % (Auto) 73 H (36-66) % Lymph % (Auto) 14 L (24-44) % Ada % (Auto) 11 H (2-6) % Eos % (Auto) 2 (2-4) % Baso % (Auto) 0 (0-1) % Sodium 141 (140-148) mmol/L Potassium 4.2 (3.6-5.2) mmol/L Chloride 109 H (100-108) mmol/L Carbon Dioxide 22 (21-32) mmol/L Anion Gap 14.2 H (5.0-14.0) mmol/L BUN 14 (7-18) mg/dL Creatinine 0.9 (0.6-1.0) mg/dL Est Cr Clr Drug Dosing 45.34 mL/min Estimated GFR (MDRD) > 60 (>60) Glucose 121 H (74-106) mg/dL Calcium 8.0 L (8.5-10.1) mg/dL COVID-19 PCR Negative (NEGATIVE) [facility] Results Last 24 Hours: Microbiology 02/08/20 01:51 Urine Culture - Preliminary Urine, Clean Catch 02/07/20 23:05 Aerobic Blood Culture - Preliminary Blood - Venous NO GROWTH AFTER 1 DAY Anaerobic Blood Culture - Preliminary NO GROWTH AFTER 1 DAY 02/07/20 23:15 Aerobic Blood Culture - Preliminary Blood - Venous NO GROWTH AFTER 1 DAY Anaerobic Blood Culture - Preliminary NO GROWTH AFTER 1 DAY Med Orders - Current: Current Medications Acetaminophen (Tylenol) 650 mg PO Q4H PRN PRN Reason: Pain (Mild 1-3)/fever Last Admin: 02/09/20 08:07 Dose: 650 mg Aspirin (Aspirin) 81 mg PO DAILY [facility] Last Admin: 02/09/20 08:07 Dose: 81 mg Calcium Carbonate (Caltrate 600+D 1500 Mg-400 Units) 1 tab PO DAILY [facility] Last Admin: 02/09/20 08:07 Dose: 1 tab Cholecalciferol (Vitamin D3) 50 mcg PO DAILY [facility] Last Admin: 02/09/20 08:07 Dose: 50 mcg Citalopram Hydrobromide (Celexa) 20 mg PO DAILY [facility] Last Admin: 02/09/20 08:10 Dose: 20 mg Dextrose (Glutose 15) 15 gm PO ONETIME PRN PRN Reason: Hypoglycemia Dextrose/Water (Dextrose 50% In Water) 50 ml IV ONETIME PRN PRN Reason: Hypoglycemia Furosemide (Lasix) 40 mg PO DAILY PRN PRN Reason: retention Ciprofloxacin/Dextrose 400 mg/ (Premix) 200 mls @ 200 mls/hr IV Q12H [facility] Last Admin: 02/09/20 02:03 Dose: 200 mls/hr Vancomycin HCl 1.2 gm/ Sodium (Chloride) 250 mls @ 167 mls/hr IV Q24H [facility] Last Admin: 02/09/20 09:46 Dose: 167 mls/hr Insulin Human Lispro (Humalog) 0 unit SUBCUT QIDACANDBED [facility]; Protocol Last Admin: 02/09/20 07:35 Dose: Not Given Lactobacillus Rhamnosus (Culturelle) 1 cap PO BID [facility] Last Admin: 02/09/20 08:07 Dose: 1 cap Metformin HCl (Glucophage) 1,000 mg PO BIDMEALS [facility] Last Admin: 02/09/20 07:30 Dose: 1,000 mg Metoprolol Succinate (Toprol Xl) 25 mg PO DAILY [facility] Last Admin: 02/09/20 09:44 Dose: Not Given Multivitamins/Minerals (Thera M Plus) 1 tab PO DAILY [facility] Last Admin: 02/09/20 08:09 Dose: 1 tab Co Q-10 50 Mg Ptom () 1 each PO DAILY [facility] Last Admin: 02/09/20 08:19 Dose: Not Given Ondansetron HCl (Zofran) 4 mg IV Q4H PRN PRN Reason: Nausea/Vomiting Last Admin: 02/08/20 06:21 Dose: 4 mg Pantoprazole Sodium (Protonix) 40 mg PO ACBREAKFAST [facility] Last Admin: 02/09/20 07:30 Dose: 40 mg Pregabalin (Lyrica) 150 mg PO BEDTIME [facility] Last Admin: 02/08/20 20:40 Dose: 150 mg Rosuvastatin Calcium (Crestor) 40 mg PO BEDTIME [facility] Last Admin: 02/08/20 20:40 Dose: 40 mg Discontinued Medications Acetaminophen (Tylenol) 650 mg PO NOW ONE Stop: 02/08/20 00:32 Last Admin: 02/08/20 01:30 Dose: 650 mg Hydromorphone HCl (Dilaudid) 0.5 mg IVPUSH ONETIME ONE Stop: 02/07/20 22:50 Last Admin: 02/07/20 23:10 Dose: 0.5 mg Sodium Chloride (Normal Saline) 1,000 mls @ 999 mls/hr IV .BOLUS ONE Stop: 02/07/20 23:49 Last Admin: 02/07/20 23:09 Dose: 999 mls/hr Clindamycin Phosphate 600 mg/ (Sodium Chloride) 54 mls @ 100 mls/hr IV ONETIME ONE Stop: 02/08/20 01:02 Last Admin: 02/08/20 01:35 Dose: 100 mls/hr Sodium Chloride (Normal Saline) 1,000 mls @ 999 mls/hr IV .BOLUS ONE Stop: 02/08/20 02:03 Last Admin: 02/08/20 01:31 Dose: 999 mls/hr Sodium Chloride (Normal Saline) 1,000 mls @ 125 mls/hr IV ASDIRECTED [facility] Last Admin: 02/09/20 04:00 Dose: 125 mls/hr Clindamycin Phosphate 600 mg/ (Sodium Chloride) 54 mls @ 100 mls/hr IV Q8H [facility] Sodium Chloride (Normal Saline) 1,000 mls @ 500 mls/hr IV NOW STA Stop: 02/08/20 10:43 Last Admin: 02/08/20 08:59 Dose: 500 mls/hr Vancomycin HCl 1.5 gm/ Sodium (Chloride) 250 mls @ 167 mls/hr IV ONETIME ONE Stop: 02/08/20 11:29 Last Admin: 02/08/20 10:13 Dose: 167 mls/hr Norepinephrine Bitartrate 4 mg (/ Dextrose/Water) 250 mls @ 7.5 mls/hr IV TITRATE [facility]; Protocol Last Titration: 02/09/20 07:34 Dose: 0 mcg/min, 0 mls/hr Ibuprofen (Motrin) 400 mg PO ONETIME ONE Stop: 02/08/20 03:03 Last Admin: 02/08/20 03:21 Dose: 400 mg Ondansetron HCl (Zofran) 4 mg IVPUSH ONETIME ONE Stop: 02/07/20 22:55 Last Admin: 02/07/20 23:10 Dose: 4 mg Vancomycin HCl (Vancomycin) 1 gm IV .PHARMACY TO DOSE [facility] Stop: 02/08/20 10:00 - Exam Quality Assessment: DVT Prophylaxis General: Alert, Oriented, Cooperative, Mild Distress Lungs: Clear to Auscultation, Normal Respiratory Effort Cardiovascular: Regular Rate, Regular Rhythm GI/Abdominal Exam: Soft, Non-Tender, No Organomegaly, No Distention Extremities: No Pedal Edema, Arm Pain (And swelling) Sepsis Event Note - Evaluation Sepsis Screening Result: No Definite Risk - Focused Exam Vital Signs: Vital Signs Temp Pulse Pulse Resp BP BP Pulse Ox 02/09/20 09:44 71 103/52 L 02/09/20 09:00 77 14 103/52 L 94 L 02/09/20 08:32 75 22 H 100/45 L 98 02/09/20 08:00 78 18 95/46 L 96 02/09/20 07:00 97.6 F 63 26 H 117/60 96 02/09/20 06:00 13 119/60 98 02/09/20 05:00 18 102/44 L 99 02/09/20 04:00 19 116/56 L 98 02/09/20 03:00 18 108/58 L 100 02/09/20 02:00 97.9 F 20 101/48 L 100 02/09/20 01:00 22 H 109/52 L 96 02/09/20 00:00 20 93/39 L 96 02/08/20 23:00 24 H 97/43 L 95 Date Exam was Performed: 02/09/20 Time Exam was Performed: 10:02 - Problem List Review Problem List Initiated/Reviewed/Updated: Yes - My Orders Last 24 Hours: My Active Orders 02/08/20 09:40 Patient Status [ADT] Routine 02/08/20 10:06 Blood Glucose Check, Bedside [RC] QIDACANDBED Communication Order [RC] STAT Diabetes Education [RC] Click to Edit Notify Provider [RC] PRN Dextrose 50% in Water 50 ml IV ONETIME PRN Dextrose [Glutose 15] 15 gm PO ONETIME PRN 02/08/20 11:00 Insulin Lispro [HumaLOG] See Protocol SUBCUT QIDACANDBED 02/09/20 10:00 Vancomycin 1.2 gm Sodium Chloride 0.9% [Normal Saline] 250 ml IV Q24H Convert IV to Saline Lock [OM.PC] Routine 02/10/20 07:30 GLUCOSE POC LAB TO COLLECT [POC] QIDACANDBED 02/10/20 11:30 GLUCOSE POC LAB TO COLLECT [POC] QIDACANDBED 02/10/20 16:30 GLUCOSE POC LAB TO COLLECT [POC] QIDACANDBED 02/10/20 21:00 GLUCOSE POC LAB TO COLLECT [POC] QIDACANDBED 02/11/20 07:30 GLUCOSE POC LAB TO COLLECT [POC] QIDACANDBED 02/11/20 11:30 GLUCOSE POC LAB TO COLLECT [POC] QIDACANDBED 02/11/20 16:30 GLUCOSE POC LAB TO COLLECT [POC] QIDACANDBED 02/11/20 21:00 GLUCOSE POC LAB TO COLLECT [POC] QIDACANDBED 02/12/20 07:30 GLUCOSE POC LAB TO COLLECT [POC] QIDACANDBED 02/12/20 11:30 GLUCOSE POC LAB TO COLLECT [POC] QIDACANDBED 02/12/20 16:30 GLUCOSE POC LAB TO COLLECT [POC] QIDACANDBED 02/12/20 21:00 GLUCOSE POC LAB TO COLLECT [POC] QIDACANDBED 02/13/20 07:30 GLUCOSE POC LAB TO COLLECT [POC] QIDACANDBED - Plan Plan:: ASSESSMENT AND PLAN CELLULITIS OF THE RIGHT UPPER EXTREMITY WITH SEPSIS-improved since yesterday, sepsis has resolved. Blood pressure stable off of IV norepinephrine -Vancomycin, pharmacy to dose -Saline lock IV -Blood cultures pending POSSIBLE URINARY TRACT INFECTION-urine culture growing gram-negative xenia, final ID and sensitivities pending -Continue ciprofloxacin, pending culture result CORONARY ARTERY DISEASE-currently asymptomatic -Hold blood pressure lowering medications until sepsis has resolved HISTORY OF RIGHT BREAST CARCINOMA STATUS POST MASTECTOMY TYPE 2 DIABETES MELLITUS -Continue outpatient medical therapy -4 times daily glucometers -Low-dose sliding scale Humalog MAINTENANCE ISSUES -DVT prophylaxis; Lovenox 40 mg subcu daily -GI prophylaxis; not indicated -Yu catheter; not indicated -Nutrition; consistent carb diet -Nicotine dependence; not required CODE STATUS-FULL CODE ADMISSION STATUS-patient will be admitted to inpatient status, expect at least a 2 night hospital stay for evaluation and management of problems as outlined above. At the time of this admission I do not reasonably expected evaluation and management of this problem will require more than a 96 hour hospital stay. DISPOSITION-anticipate discharge to home after the hospital stay. PRIMARY CARE PROVIDER-
[2020-02-09] MEDS ORDERED: diphenhydrAMINE 50 MG/ML SDV IVPUSH ONE (15:03)
[2020-02-09] MEDS: Pregabalin 50 MG Cap PO SCH (20:42)
[2020-02-09] MEDS: Rosuvastatin 10 MG Tab PO SCH (20:42)
[2020-02-10] MEDS ORDERED: Gentamicin 40 MG/ML 2 ML Vial IV SCH (07:30)
[2020-02-10] MEDS: Cholecalciferol (Vitamin D3) 25 MCG Tab PO SCH (08:46)
[2020-02-10] MEDS: Multivitamins with Iron/Calcium/Folic Acid/Minerals Tab PO SCH (08:46)
[2020-02-10] MEDS: Lactobacillus Rhamnosus GG (Probiotic) Cap PO SCH ×2 (08:46→20:08)
[2020-02-10] MEDS: Pantoprazole 40 MG Tab.CR PO SCH (08:46)
[2020-02-10] MEDS: Aspirin 81 MG Tab.Chew PO SCH (08:47)
[2020-02-10] MEDS: metFORMIN 500 MG Tab PO SCH ×2 (08:47→16:49)
[2020-02-10] MEDS: Calcium Carbonate/Vitamin D3 1500 MG-400 Units Tab PO SCH (08:47)
[2020-02-10] MEDS: Insulin Lispro 100 Unit/ML 3 ML KwikPen SUBCUT SCH ×3 (08:48→20:05)
[2020-02-10] MEDS: Metoprolol Succinate 25 MG Tab.ER PO SCH (08:49)
[2020-02-10] MEDS: Citalopram 20 MG Tab PO SCH (08:49)
[2020-02-10] MEDS: CO Q10 50 MG PO SCH (08:54)
--- NOTE | 2020-02-10 09:21 | PCM.PN ---
- General Info Date of Service: 02/10/20 Subjective Update: Ms. Burleson has shown further improvement over the last 24 hours. Erythema of the right upper extremity is essentially resolved there is residual tenderness as well as lymphedema. Did experience a reaction to the ciprofloxacin yesterday which was skin related and relatively mild. Signs have been good and she has remained afebrile. Functional Status: Reports: Tolerating Diet, Ambulating, Urinating - Review of Systems General: Reports: Weakness. Denies: Fever, Chills Pulmonary: Reports: No Symptoms Cardiovascular: Reports: No Symptoms Gastrointestinal: Reports: No Symptoms - Patient Data Vitals - Most Recent: Last Vital Signs Temp 98 F 02/10/20 09:00 Pulse 73 02/10/20 09:00 Resp 11 L 02/10/20 09:00 BP 119/66 02/10/20 09:00 Pulse Ox 98 02/10/20 09:00 Orthostatic Blood Pressure [ 103/52 Standing] Orthostatic Blood Pressure [ 97/44 Sitting] Orthostatic Blood Pressure [ 101/49 Supine] Weight - Most Recent: 185 lb 3.013 oz I&O - Last 24 Hours: Intake & Output 02/09/20 02/10/20 02/10/20 22:59 06:59 14:59 Output Total 1400 800 Balance -1400 -800 [facility] Results Last 24 Hours: Microbiology 02/08/20 01:51 Urine Culture - Final Urine, Clean Catch Pseudomonas Aeruginosa 02/07/20 23:05 Aerobic Blood Culture - Preliminary Blood - Venous NO GROWTH AFTER 2 DAYS Anaerobic Blood Culture - Preliminary NO GROWTH AFTER 2 DAYS 02/07/20 23:15 Aerobic Blood Culture - Preliminary Blood - Venous NO GROWTH AFTER 2 DAYS Anaerobic Blood Culture - Preliminary NO GROWTH AFTER 2 DAYS Med Orders - Current: Current Medications Acetaminophen (Tylenol) 650 mg PO Q4H PRN PRN Reason: Pain (Mild 1-3)/fever Last Admin: 02/09/20 08:07 Dose: 650 mg Aspirin (Aspirin) 81 mg PO DAILY [facility] Last Admin: 02/10/20 08:47 Dose: 81 mg Calcium Carbonate (Caltrate 600+D 1500 Mg-400 Units) 1 tab PO DAILY [facility] Last Admin: 02/10/20 08:47 Dose: 1 tab Cholecalciferol (Vitamin D3) 50 mcg PO DAILY [facility] Last Admin: 02/10/20 08:46 Dose: 50 mcg Citalopram Hydrobromide (Celexa) 20 mg PO DAILY [facility] Last Admin: 02/10/20 08:49 Dose: 20 mg Dextrose (Glutose 15) 15 gm PO ONETIME PRN PRN Reason: Hypoglycemia Dextrose/Water (Dextrose 50% In Water) 50 ml IV ONETIME PRN PRN Reason: Hypoglycemia Furosemide (Lasix) 40 mg PO DAILY PRN PRN Reason: retention Gentamicin Sulfate (Gentamicin) 1 mg IV .[facility]armacy to Dose [facility] Vancomycin HCl 1.2 gm/ Sodium (Chloride) 250 mls @ 167 mls/hr IV Q24H [facility] Last Admin: 02/09/20 09:46 Dose: 167 mls/hr Gentamicin Sulfate 320 mg/ (Sodium Chloride) 108 mls @ 108 mls/hr IV ONETIME ONE Stop: 02/10/20 12:59 Insulin Human Lispro (Humalog) 0 unit SUBCUT QIDACANDBED [facility]; Protocol Last Admin: 02/10/20 08:48 Dose: Not Given Lactobacillus Rhamnosus (Culturelle) 1 cap PO BID [facility] Last Admin: 02/10/20 08:46 Dose: 1 cap Metformin HCl (Glucophage) 1,000 mg PO BIDMEALS [facility] Last Admin: 02/10/20 08:47 Dose: 1,000 mg Metoprolol Succinate (Toprol Xl) 25 mg PO DAILY [facility] Last Admin: 02/10/20 08:49 Dose: Not Given Multivitamins/Minerals (Thera M Plus) 1 tab PO DAILY [facility] Last Admin: 02/10/20 08:46 Dose: 1 tab Co Q-10 50 Mg Ptom () 1 each PO DAILY [facility] Last Admin: 02/10/20 08:54 Dose: Not Given Ondansetron HCl (Zofran) 4 mg IV Q4H PRN PRN Reason: Nausea/Vomiting Last Admin: 02/08/20 06:21 Dose: 4 mg Pantoprazole Sodium (Protonix) 40 mg PO ACBREAKFAST [facility] Last Admin: 02/10/20 08:46 Dose: 40 mg Pregabalin (Lyrica) 150 mg PO BEDTIME [facility] Last Admin: 02/09/20 20:42 Dose: 150 mg Rosuvastatin Calcium (Crestor) 40 mg PO BEDTIME [facility] Last Admin: 02/09/20 20:42 Dose: 40 mg Discontinued Medications Acetaminophen (Tylenol) 650 mg PO NOW ONE Stop: 02/08/20 00:32 Last Admin: 02/08/20 01:30 Dose: 650 mg Diphenhydramine HCl (Benadryl) 25 mg IVPUSH ONETIME ONE Stop: 02/09/20 15:04 Last Admin: 02/09/20 15:16 Dose: 25 mg Hydromorphone HCl (Dilaudid) 0.5 mg IVPUSH ONETIME ONE Stop: 02/07/20 22:50 Last Admin: 02/07/20 23:10 Dose: 0.5 mg Sodium Chloride (Normal Saline) 1,000 mls @ 999 mls/hr IV .BOLUS ONE Stop: 02/07/20 23:49 Last Admin: 02/07/20 23:09 Dose: 999 mls/hr Clindamycin Phosphate 600 mg/ (Sodium Chloride) 54 mls @ 100 mls/hr IV ONETIME ONE Stop: 02/08/20 01:02 Last Admin: 02/08/20 01:35 Dose: 100 mls/hr Sodium Chloride (Normal Saline) 1,000 mls @ 999 mls/hr IV .BOLUS ONE Stop: 02/08/20 02:03 Last Admin: 02/08/20 01:31 Dose: 999 mls/hr Sodium Chloride (Normal Saline) 1,000 mls @ 125 mls/hr IV ASDIRECTED [facility] Last Admin: 02/09/20 04:00 Dose: 125 mls/hr Clindamycin Phosphate 600 mg/ (Sodium Chloride) 54 mls @ 100 mls/hr IV Q8H [facility] Ciprofloxacin/Dextrose 400 mg/ (Premix) 200 mls @ 200 mls/hr IV Q12H [facility] Last Admin: 02/09/20 13:53 Dose: 200 mls/hr Sodium Chloride (Normal Saline) 1,000 mls @ 500 mls/hr IV NOW STA Stop: 02/08/20 10:43 Last Admin: 02/08/20 08:59 Dose: 500 mls/hr Vancomycin HCl 1.5 gm/ Sodium (Chloride) 250 mls @ 167 mls/hr IV ONETIME ONE Stop: 02/08/20 11:29 Last Admin: 02/08/20 10:13 Dose: 167 mls/hr Norepinephrine Bitartrate 4 mg (/ Dextrose/Water) 250 mls @ 7.5 mls/hr IV TITRATE [facility]; Protocol Last Titration: 02/09/20 07:34 Dose: 0 mcg/min, 0 mls/hr Ibuprofen (Motrin) 400 mg PO ONETIME ONE Stop: 02/08/20 03:03 Last Admin: 02/08/20 03:21 Dose: 400 mg Ondansetron HCl (Zofran) 4 mg IVPUSH ONETIME ONE Stop: 02/07/20 22:55 Last Admin: 02/07/20 23:10 Dose: 4 mg Vancomycin HCl (Vancomycin) 1 gm IV .PHARMACY TO DOSE [facility] Stop: 02/08/20 10:00 - Exam Quality Assessment: DVT Prophylaxis General: Alert, Oriented, Cooperative, Mild Distress Lungs: Clear to Auscultation, Normal Respiratory Effort Cardiovascular: Regular Rate, Regular Rhythm, No Murmurs GI/Abdominal Exam: Soft, Non-Tender, No Organomegaly, No Distention Extremities: Non-Tender, No Pedal Edema, Other (Lymphedema right upper extremity with tenderness to palpation, erythema has resolved) Sepsis Event Note - Evaluation Sepsis Screening Result: No Definite Risk - Focused Exam Vital Signs: Vital Signs Temp Pulse Pulse Resp BP BP Pulse Ox 02/10/20 09:00 98 F 73 11 L 119/66 98 02/10/20 08:49 65 115/59 L 02/10/20 08:00 98 F 72 11 L 115/59 L 96 02/10/20 07:00 64 115/59 L 02/10/20 06:00 63 14 115/59 L 99 02/10/20 05:00 74 17 112/62 97 02/10/20 04:00 77 20 89/42 L 95 02/10/20 03:00 97.8 F 76 23 H 95 02/10/20 02:00 78 27 H 106/55 L 94 L 02/10/20 01:00 82 22 H 86/42 L 96 02/10/20 00:00 98.9 F 86 23 H 101/43 L 90 L 02/09/20 23:00 84 24 H 91/39 L 91 L 02/09/20 22:00 80 23 H 97/38 L 92 L Date Exam was Performed: 02/10/20 Time Exam was Performed: 09:16 - Problem List Review Problem List Initiated/Reviewed/Updated: Yes - My Orders Last 24 Hours: My Active Orders 02/09/20 10:00 Vancomycin 1.2 gm Sodium Chloride 0.9% [Normal Saline] 250 ml IV Q24H Convert IV to Saline Lock [OM.PC] Routine 02/09/20 10:14 Consult to Physical Therapy [PT Evaluation and Treatment] [CONS] Routine 02/10/20 07:30 Gentamicin 1 mg IV .Pharmacy to Dose 02/10/20 09:15 Patient Status [ADT] Routine 02/10/20 12:00 Gentamicin 320 mg Sodium Chloride 0.9% [Normal Saline] 100 ml IV ONETIME 02/10/20 22:00 GENTAMICIN RANDOM [CHEM] Routine 02/11/20 07:30 GLUCOSE POC LAB TO COLLECT [POC] QIDACANDBED 02/11/20 11:30 GLUCOSE POC LAB TO COLLECT [POC] QIDACANDBED 02/11/20 16:30 GLUCOSE POC LAB TO COLLECT [POC] QIDACANDBED 02/11/20 21:00 GLUCOSE POC LAB TO COLLECT [POC] QIDACANDBED 02/12/20 07:30 GLUCOSE POC LAB TO COLLECT [POC] QIDACANDBED 02/12/20 11:30 GLUCOSE POC LAB TO COLLECT [POC] QIDACANDBED 02/12/20 16:30 GLUCOSE POC LAB TO COLLECT [POC] QIDACANDBED 02/12/20 21:00 GLUCOSE POC LAB TO COLLECT [POC] QIDACANDBED 02/13/20 07:30 GLUCOSE POC LAB TO COLLECT [POC] QIDACANDBED - Plan Plan:: ASSESSMENT AND PLAN CELLULITIS OF THE RIGHT UPPER EXTREMITY WITH SEPSIS-sepsis has resolved, further good improvement in cellulitis -Vancomycin, pharmacy to dose -Saline lock IV -Blood cultures pending POSSIBLE URINARY TRACT INFECTION-urine culture growing Pseudomonas. Potential reaction to ciprofloxacin yesterday -Discontinue ciprofloxacin -IV gentamicin CORONARY ARTERY DISEASE-currently asymptomatic HISTORY OF RIGHT BREAST CARCINOMA STATUS POST MASTECTOMY TYPE 2 DIABETES MELLITUS -Continue outpatient medical therapy -4 times daily glucometers -Low-dose sliding scale Humalog MAINTENANCE ISSUES -DVT prophylaxis; Lovenox 40 mg subcu daily -GI prophylaxis; not indicated -Yu catheter; not indicated -Nutrition; consistent carb diet -Nicotine dependence; not required CODE STATUS-FULL CODE ADMISSION STATUS-patient will be admitted to inpatient status, expect at least a 2 night hospital stay for evaluation and management of problems as outlined above. At the time of this admission I do not reasonably expected evaluation and management of this problem will require more than a 96 hour hospital stay. DISPOSITION-anticipate discharge to home after the hospital stay. PRIMARY CARE PROVIDER-
[2020-02-10] MEDS: Vancomycin 1.2 GM in Sodium Chloride 0.9% 250 ML IV SCH (09:59)
[2020-02-10] MEDS: Levofloxacin/Dextrose 5%-Water 500 MG in Premix Bag 1 BAG IV SCH (12:59)
[2020-02-10] MEDS: Rosuvastatin 10 MG Tab PO SCH (20:08)
[2020-02-10] MEDS: Pregabalin 50 MG Cap PO SCH (20:10)
[2020-02-10] MEDS ORDERED: diphenhydrAMINE 25 MG Cap PO PRN (21:48)
[2020-02-11] MEDS: Pantoprazole 40 MG Tab.CR PO SCH (07:28)
[2020-02-11] MEDS: metFORMIN 500 MG Tab PO SCH (07:29)
[2020-02-11] MEDS: Vancomycin 1.2 GM in Sodium Chloride 0.9% 250 ML IV SCH (10:51)
[2020-02-11] MEDS: Metoprolol Succinate 25 MG Tab.ER PO SCH (10:54)
[2020-02-11] MEDS: Lactobacillus Rhamnosus GG (Probiotic) Cap PO SCH (10:55)
[2020-02-11] MEDS: Citalopram 20 MG Tab PO SCH (10:56)
[2020-02-11] MEDS: Aspirin 81 MG Tab.Chew PO SCH (10:56)
[2020-02-11] MEDS: Multivitamins with Iron/Calcium/Folic Acid/Minerals Tab PO SCH (10:56)
[2020-02-11] MEDS: CO Q10 50 MG PO SCH (10:57)
[2020-02-11] MEDS: Calcium Carbonate/Vitamin D3 1500 MG-400 Units Tab PO SCH (10:57)
[2020-02-11] MEDS: Cholecalciferol (Vitamin D3) 25 MCG Tab PO SCH (10:57)
[2020-02-11] MEDS: Insulin Lispro 100 Unit/ML 3 ML KwikPen SUBCUT SCH (10:59)
[2020-02-11] MEDS: Levofloxacin/Dextrose 5%-Water 500 MG in Premix Bag 1 BAG IV SCH (12:31)
--- NOTE | 2020-02-11 12:42 | PCM.DCSUM1 ---
Discharge Summary - Hospital Course Brief History: Ms. Burleson is a 69-year-old woman was admitted through the emergency department with weakness fever, swelling and erythema of her right upper extremity secondary to cellulitis with sepsis. - Discharge Data Discharge Date: 02/11/20 Discharge Disposition: Home, Self-Care 01 Condition: Fair - Referral to Home Health Primary Care Physician: PCP None - Discharge Diagnosis/Problem(s) (1) Lymphedema of right arm SNOMED Code(s): 11581582926630716 ICD Code: I89.0 - LYMPHEDEMA, NOT ELSEWHERE CLASSIFIED Status: Acute Current Visit: Yes (2) Sepsis SNOMED Code(s): 06708531 ICD Code: A41.9 - SEPSIS, UNSPECIFIED ORGANISM Status: Acute Current Visit: Yes Qualifiers: Sepsis type: sepsis due to unspecified organism Sepsis acute organ dysfunction status: without acute organ dysfunction Qualified Code(s): A41.9 - Sepsis, unspecified organism (3) Cellulitis of right arm SNOMED Code(s): 460592584 ICD Code: L03.113 - CELLULITIS OF RIGHT UPPER LIMB Status: Acute Current Visit: No (4) Diabetes mellitus type II, controlled SNOMED Code(s): 89857299, 911634343 ICD Code: E11.9 - TYPE 2 DIABETES MELLITUS WITHOUT COMPLICATIONS Status: Chronic Current Visit: No Qualifiers: Diabetes mellitus rat exterminator insulin use: without rat exterminator use Diabetes mellitus complication status: with neurologic complications Diabetes mellitus complication detail: with polyneuropathy Qualified Code(s): E11.42 - Type 2 diabetes mellitus with diabetic polyneuropathy (5) Hx of breast cancer SNOMED Code(s): 572584721 ICD Code: Z85.3 - PERSONAL HISTORY OF MALIGNANT NEOPLASM OF BREAST Status: Chronic Current Visit: No (6) Hx of aortic valve replacement SNOMED Code(s): 3929098663008, 465561602, 5805254765290 ICD Code: Z95.2 - PRESENCE OF PROSTHETIC HEART VALVE Status: Chronic Current Visit: No - Patient Summary/Data Consults: Consultations 02/09/20 10:14 Consult to Physical Therapy [PT Evaluation and Treatment] [CONS] Routine Please Evaluate and Treat. PT Reason for Consult: Weakness, cellulitis/sepsis This query below is only for informational purposes and is not editable. Admission Diagnosis/Problem: Cellulitis Hospital Course: Ms. Burleson is a 69-year-old woman who was admitted emergency department with sepsis and cellulitis of the right upper extremity. She is status post right mastectomy done for breast carcinoma and has had some ongoing difficulty with lymphedema. She has had previous episodes of cellulitis of her right upper extremity related to this. Most recent episode was in December of this year when she was hospitalized at this facility. There was also some question of possible urinary tract infection noted on admission. She does have a history of anaphylaxis related to use of penicillin. In the emergency department was started on IV antibiotic therapy with clindamycin and given IV fluid infusion per sepsis protocol. Unfortunately after admission she continued to experience hypotension unresponsive to further fluid boluses. She was transferred to the intensive care unit and started on a continuous infusion of IV norepinephrine. Clindamycin was discontinued and she was started on IV vancomycin in addition to the prophylaxis and. Over the next 24 hours she is stabilized with improvement in blood pressures and was tapered off of IV norepinephrine. Blood cultures remain negative but she did grow Pseudomonas out of her urine. She was seen by physical therapy and Occupational Therapy concerning weakness and her lymphedema. Blood sugars were monitored regularly and she was treated with low-dose sliding scale Humalog in addition to her usual insulin. By the time of discharge erythema and tenderness had resolved in the right upper extremity although she continued to experience lymphedema. She will follow-up with occupational therapy as an outpatient for further management. On discharge she will be placed on levofloxacin 500 mg daily for an additional 7 days. Activity will be as tolerated and she will resume her usual diet. Follow-up appointment will be scheduled with her primary care provider within 1 week. - Patient Instructions Diet: Diabetic Diet Activity: As Tolerated Other/Special Instructions: Please schedule follow-up appointment with primary care provider within 1 week. - Discharge Plan *PRESCRIPTION DRUG MONITORING PROGRAM REVIEWED*: Not Applicable *COPY OF PRESCRIPTION DRUG MONITORING REPORT IN PATIENT LORI: Not Applicable Prescriptions/Med Rec: levoFLOXacin [Levaquin] 500 mg PO DAILY #7 tab Home Medications: Home Meds Aspirin 81 mg PO DAILY 12/26/19 [History] Cholecalciferol (Vitamin D3) [Vitamin D3] 1 cap PO DAILY 12/26/19 [History] Citalopram [Citalopram HBr] 20 mg PO DAILY 12/26/19 [History] Furosemide [Lasix] 40 mg PO DAILY PRN 12/26/19 [History] Metoprolol Succinate [Toprol XL] 25 mg PO DAILY 12/26/19 [History] Multivitamin [Multi-Vitamin Daily] 1 tab PO DAILY 12/26/19 [History] Pregabalin 150 mg PO BEDTIME 12/26/19 [History] Rosuvastatin Calcium 40 mg PO BEDTIME 12/26/19 [History] Ubidecarenone/Vitamin E [Co Q-10 50 MG Softgel] 1 each PO DAILY 12/26/19 [ History] metFORMIN [Glucophage] 1,000 mg PO BIDMEALS 12/26/19 [History] Lactobacillus Rhamnosus GG [Culturelle] 1 cap PO BID #60 cap 12/28/19 [Rx] Calcium Carb/D3/Magnesium/Zinc [Jonathan Mag Zinc + D3] 3 tab PO DAILY 02/07/20 [ History] Pantoprazole [ProTONIX] 1 tab PO DAILY 02/07/20 [History] levoFLOXacin [Levaquin] 500 mg PO DAILY #7 tab 02/11/20 [Rx] Referrals: Yoselyn Morales MD [Ordering Only Provider] - - Discharge Summary/Plan Comment DC Time >30 min.: No - Patient Data Vitals - Most Recent: Last Vital Signs Temp 97.3 F 02/11/20 11:03 Pulse 78 02/11/20 11:03 Resp 16 02/11/20 11:03 BP 119/58 L 02/11/20 11:03 Pulse Ox 99 02/11/20 11:03 Orthostatic Blood Pressure [ 103/52 Standing] Orthostatic Blood Pressure [ 97/44 Sitting] Orthostatic Blood Pressure [ 101/49 Supine] Weight - Most Recent: 185 lb 3.013 oz I&O - Last 24 hours: Intake & Output 02/10/20 02/11/20 02/11/20 22:59 06:59 14:59 Intake Total 400 580 Balance 400 580 LUIS Results - Last 24 hrs: Microbiology 02/07/20 23:05 Aerobic Blood Culture - Preliminary Blood - Venous NO GROWTH AFTER 3 DAYS Anaerobic Blood Culture - Preliminary NO GROWTH AFTER 3 DAYS 02/07/20 23:15 Aerobic Blood Culture - Preliminary Blood - Venous NO GROWTH AFTER 3 DAYS Anaerobic Blood Culture - Preliminary NO GROWTH AFTER 3 DAYS Med Orders - Current: Current Medications Acetaminophen (Tylenol) 650 mg PO Q4H PRN PRN Reason: Pain (Mild 1-3)/fever Last Admin: 02/09/20 08:07 Dose: 650 mg Aspirin (Aspirin) 81 mg PO DAILY [facility] Last Admin: 02/11/20 10:56 Dose: 81 mg Calcium Carbonate (Caltrate 600+D 1500 Mg-400 Units) 1 tab PO DAILY [facility] Last Admin: 02/11/20 10:57 Dose: 1 tab Cholecalciferol (Vitamin D3) 50 mcg PO DAILY [facility] Last Admin: 02/11/20 10:57 Dose: 50 mcg Citalopram Hydrobromide (Celexa) 20 mg PO DAILY [facility] Last Admin: 02/11/20 10:56 Dose: 20 mg Dextrose (Glutose 15) 15 gm PO ONETIME PRN PRN Reason: Hypoglycemia Dextrose/Water (Dextrose 50% In Water) 50 ml IV ONETIME PRN PRN Reason: Hypoglycemia Diphenhydramine HCl (Benadryl) 25 mg PO BEDTIME PRN PRN Reason: Insomnia Last Admin: 02/10/20 21:56 Dose: 25 mg Furosemide (Lasix) 40 mg PO DAILY PRN PRN Reason: retention Vancomycin HCl 1.2 gm/ Sodium (Chloride) 250 mls @ 167 mls/hr IV Q24H [facility] Last Admin: 02/11/20 10:51 Dose: 167 mls/hr Levofloxacin/Dextrose 500 mg/ (Premix) 100 mls @ 100 mls/hr IV Q24H [facility] Last Admin: 02/11/20 12:31 Dose: 100 mls/hr Insulin Human Lispro (Humalog) 0 unit SUBCUT BID [facility]; Protocol Last Admin: 02/11/20 10:59 Dose: Not Given Lactobacillus Rhamnosus (Culturelle) 1 cap PO BID [facility] Last Admin: 02/11/20 10:55 Dose: 1 cap Metformin HCl (Glucophage) 1,000 mg PO BIDMEALS [facility] Last Admin: 02/11/20 07:29 Dose: 1,000 mg Metoprolol Succinate (Toprol Xl) 25 mg PO DAILY [facility] Last Admin: 02/11/20 10:54 Dose: 25 mg Multivitamins/Minerals (Thera M Plus) 1 tab PO DAILY [facility] Last Admin: 02/11/20 10:56 Dose: 1 tab Co Q-10 50 Mg Ptom () 1 each PO DAILY [facility] Last Admin: 02/11/20 10:57 Dose: Not Given Ondansetron HCl (Zofran) 4 mg IV Q4H PRN PRN Reason: Nausea/Vomiting Last Admin: 02/08/20 06:21 Dose: 4 mg Pantoprazole Sodium (Protonix) 40 mg PO ACBREAKFAST [facility] Last Admin: 02/11/20 07:28 Dose: 40 mg Pregabalin (Lyrica) 150 mg PO BEDTIME MYRA Last Admin: 02/10/20 20:10 Dose: 150 mg Rosuvastatin Calcium (Crestor) 40 mg PO BEDTIME MYRA Last Admin: 02/10/20 20:08 Dose: 40 mg Discontinued Medications Acetaminophen (Tylenol) 650 mg PO NOW ONE Stop: 02/08/20 00:32 Last Admin: 02/08/20 01:30 Dose: 650 mg Diphenhydramine HCl (Benadryl) 25 mg IVPUSH ONETIME ONE Stop: 02/09/20 15:04 Last Admin: 02/09/20 15:16 Dose: 25 mg Hydromorphone HCl (Dilaudid) 0.5 mg IVPUSH ONETIME ONE Stop: 02/07/20 22:50 Last Admin: 02/07/20 23:10 Dose: 0.5 mg Sodium Chloride (Normal Saline) 1,000 mls @ 999 mls/hr IV .BOLUS ONE Stop: 02/07/20 23:49 Last Admin: 02/07/20 23:09 Dose: 999 mls/hr Clindamycin Phosphate 600 mg/ (Sodium Chloride) 54 mls @ 100 mls/hr IV ONETIME ONE Stop: 02/08/20 01:02 Last Admin: 02/08/20 01:35 Dose: 100 mls/hr Sodium Chloride (Normal Saline) 1,000 mls @ 999 mls/hr IV .BOLUS ONE Stop: 02/08/20 02:03 Last Admin: 02/08/20 01:31 Dose: 999 mls/hr Sodium Chloride (Normal Saline) 1,000 mls @ 125 mls/hr IV ASDIRECTED [facility] Last Admin: 02/09/20 04:00 Dose: 125 mls/hr Clindamycin Phosphate 600 mg/ (Sodium Chloride) 54 mls @ 100 mls/hr IV Q8H MYRA Ciprofloxacin/Dextrose 400 mg/ (Premix) 200 mls @ 200 mls/hr IV Q12H MYRA Last Admin: 02/09/20 13:53 Dose: 200 mls/hr Sodium Chloride (Normal Saline) 1,000 mls @ 500 mls/hr IV NOW STA Stop: 02/08/20 10:43 Last Admin: 02/08/20 08:59 Dose: 500 mls/hr Vancomycin HCl 1.5 gm/ Sodium (Chloride) 250 mls @ 167 mls/hr IV ONETIME ONE Stop: 02/08/20 11:29 Last Admin: 02/08/20 10:13 Dose: 167 mls/hr Norepinephrine Bitartrate 4 mg (/ Dextrose/Water) 250 mls @ 7.5 mls/hr IV TITRATE MYRA; Protocol Last Titration: 02/09/20 07:34 Dose: 0 mcg/min, 0 mls/hr Ibuprofen (Motrin) 400 mg PO ONETIME ONE Stop: 02/08/20 03:03 Last Admin: 02/08/20 03:21 Dose: 400 mg Insulin Human Lispro (Humalog) 0 unit SUBCUT QIDACANDBED [facility]; Protocol Last Admin: 02/10/20 12:40 Dose: Not Given Ondansetron HCl (Zofran) 4 mg IVPUSH ONETIME ONE Stop: 02/07/20 22:55 Last Admin: 02/07/20 23:10 Dose: 4 mg Vancomycin HCl (Vancomycin) 1 gm IV .PHARMACY TO DOSE MYRA Stop: 02/08/20 10:00 - Exam Quality Assessment: Reports: DVT Prophylaxis General: Reports: Alert, Oriented, Cooperative, No Acute Distress Lungs: Reports: Clear to Auscultation, Normal Respiratory Effort Cardiovascular: Reports: Regular Rate, Regular Rhythm, Murmurs GI/Abdominal Exam: Soft, Non-Tender, No Organomegaly, No Distention Extremities: Other (Lymphedema right upper extremity, erythema has resolved)
== END 2020-02-11 15:40 | disposition home or self-care (01) | DRG 862 ==
LOC: JP.ED 22:09 → JP.MS 02-08 01:51 → JP.ICU 02-08 09:49 → JP.2SS 02-10 13:12
PROVIDERS: ADMIT Family Medicine; ATTEND Hospitalist
DX: T81.44XA Sepsis following a procedure, initial encounter (principal); A41.9 Sepsis, unspecified organism; H54.7 Unspecified visual loss; L03.113 Cellulitis of right upper limb; N39.0 Urinary tract infection, site not specified; E10.9 Type 1 diabetes mellitus without complications; I89.0 Lymphedema, not elsewhere classified; Z95.1 Presence of aortocoronary bypass graft; Z95.5 Presence of coronary angioplasty implant and graft; Z95.0 Presence of cardiac pacemaker; I25.10 Atherosclerotic heart disease of native coronary artery without angina pectoris; Z90.10 Acquired absence of unspecified breast and nipple; E11.42 Type 2 diabetes mellitus with diabetic polyneuropathy; I95.9 Hypotension, unspecified; Z20.828 Contact with and (suspected) exposure to other viral communicable diseases; B96.5 Pseudomonas (aeruginosa) (mallei) (pseudomallei) as the cause of diseases classified elsewhere; Z85.3 Personal history of malignant neoplasm of breast; Z95.2 Presence of prosthetic heart valve; Z90.710 Acquired absence of both cervix and uterus; Z90.49 Acquired absence of other specified parts of digestive tract; Z79.82 Long term (current) use of aspirin; Z79.899 Other long term (current) drug therapy; Z88.0 Allergy status to penicillin; Z91.040 Latex allergy status; Z88.8 Allergy status to other drugs, medicaments and biological substances; I25.2 Old myocardial infarction; Z88.1 Allergy status to other antibiotic agents; Z91.041 Radiographic dye allergy status; Z79.84 Long term (current) use of oral hypoglycemic drugs
CPT/HCPCS: 36415; 71046 ×2; 80053; 81001; 83605; 83690; 84484; 85027; 85610; 87040 ×2; 87804 ×2; 96361 ×2; 96365; 96375; 99285; A9270; J1170; J2405; J3490; J7030 ×2; J7050; U0002; 80048; 82962; 85025; 87086; 87088; 87186; 96367; 96376; 97161-GP; J0744; J1200; J1815; J1956; J3370; J7060

== ENCOUNTER 2020-05-23 12:27 | Emergency (ER) | payer MEDICARE, OTHER ==
--- NOTE | 2020-05-23 13:36 | EDM.PDOC ---
ED HPI GENERAL MEDICAL PROBLEM - General Chief Complaint: Neurological Problem Stated Complaint: MAYBE A TIA ON SATURDAY BEEN TIRED/HEADACHE Time Seen by Provider: 05/23/20 13:20 Source of Information: Reports: Patient, Family, Old Records, RN History Limitations: Reports: No Limitations - History of Present Illness INITIAL COMMENTS - FREE TEXT/NARRATIVE: 69 yo female presents with her daughter for evaluation of 3 spells that have occurred over the past just over a week. The first was associated with 3 jerks of head to the right followed by a very transient inability to move but during which she was fully aware of her surroundings and felt fatigued. The 2nd two spells were without the head jerking, but were otherwise similar. She has has a mild occipital scalp tenderness/BROWN over the past couple of days. No hx of seizures or CVA's. Daughter says mom's short-term memory has slipped over the past few days. They called the clinic and were told to come to the ER. 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: Other (see below) (none) - Related Data Allergies Allergy/AdvReac Type Severity Reaction Status Date / Time Iodinated Contrast Media Allergy Severe Anaphylactic Verified 05/23/20 12:43 Shock metronidazole [From Flagyl] Allergy Severe Anaphylactic Verified 05/23/20 12:43 Shock Penicillins Allergy Severe Anaphylactic Verified 05/23/20 12:43 Shock ciprofloxacin [From Cipro] Allergy Rash Verified 05/23/20 12:43 Latex, Natural Rubber Allergy Hives Verified 05/23/20 12:43 levofloxacin Allergy Nausea and Verified 05/23/20 12:43 Vomiting morphine Allergy Hives Verified 05/23/20 12:43 Home Meds: Home Meds Aspirin 81 mg PO DAILY 12/26/19 [History] Cholecalciferol (Vitamin D3) [Vitamin D3] 1 cap PO DAILY 12/26/19 [History] Citalopram [Citalopram HBr] 20 mg PO DAILY 12/26/19 [History] Furosemide [Lasix] 40 mg PO DAILY PRN 12/26/19 [History] Metoprolol Succinate [Toprol XL] 25 mg PO DAILY 12/26/19 [History] Multivitamin [Multi-Vitamin Daily] 1 tab PO DAILY 12/26/19 [History] Pregabalin 150 mg PO BEDTIME 12/26/19 [History] Rosuvastatin Calcium 40 mg PO BEDTIME 12/26/19 [History] Ubidecarenone/Vitamin E [Co Q-10 50 MG Softgel] 1 each PO DAILY 12/26/19 [History] metFORMIN [Glucophage] 1,000 mg PO BIDMEALS 12/26/19 [History] Lactobacillus Rhamnosus GG [Culturelle] 1 cap PO BID #60 cap 12/28/19 [Rx] Calcium Carb/D3/Magnesium/Zinc [Jonathan Mag Zinc + D3] 3 tab PO DAILY 02/07/20 [History] Pantoprazole [ProTONIX] 1 tab PO DAILY 02/07/20 [History] Clopidogrel [Plavix] 75 mg PO DAILY #30 tablet 05/23/20 [Rx] Past Medical History HEENT 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: Impaired Vision, Other (See Below) Other HEENT History: wears dentures Cardiovascular 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: Arrhythmia, CAD, 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: Endocrine/Metabolic 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: Diabetes, Type I Oncologic (Cancer) 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: Breast Dermatologic 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: Cellulitis - Infectious Disease History Infectious Disease 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: C-Difficile, Chicken Pox - Past Surgical History Cardiovascular Surgical 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: Coronary Artery Bypass, Coronary Artery Stent, Pacer GI Surgical 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: Cholecystectomy Female Surgical 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: Hysterectomy, Oophorectomy Oncologic Surgical 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: Mastectomy Social & Family History - Tobacco Use Smoking Status *Q: Never Smoker Used Tobacco, but Quit: No - Caffeine Use Caffeine Use: Reports: Coffee, Tea ED ROS GENERAL - Review of Systems Review Of Systems: See Below Constitutional: Reports: No Symptoms HEENT: Reports: No Symptoms Respiratory: Reports: No Symptoms Cardiovascular: Reports: No Symptoms Endocrine: Reports: Fatigue (after each spell) GI/Abdominal: Reports: No Symptoms : Reports: No Symptoms Musculoskeletal: Reports: No Symptoms Skin: Reports: No Symptoms Neurological: Reports: Headache (minimal occipital), Tingling (intermittent L arm to elbow), Other (short term memory impairment of recent onset). Denies: Confusion, Dizziness, Seizure, Syncope, Trouble Speaking, Difficulty Walking, Weakness, Change in Speech, Gait Disturbance Psychiatric: Reports: No Symptoms ED EXAM, NEURO - Physical Exam Exam: See Below Exam Limited By: No Limitations General Appearance: Alert, WD/WN, No Apparent Distress Eye Exam: Bilateral Eye: EOMI, Normal Inspection, PERRL Ears: Normal External Exam, Normal Canal, Hearing Grossly Normal, Normal TMs Nose: Normal Inspection, No Blood Throat/Mouth: Normal Inspection, Normal Lips, Normal Oropharynx, Normal Voice, No Airway Compromise Head Exam: Atraumatic, Normocephalic Neck: Normal Inspection Respiratory/Chest: No Respiratory Distress, Lungs Clear, Normal Breath Sounds, No Accessory Muscle Use Cardiovascular: Regular Rate, Rhythm, No Edema GI/Abdominal: Soft, Non-Tender, No Distention Neurological: Alert, Normal Mood/Affect, Normal Dorsiflexion, CN II-XII Intact, Normal Plantar Flexion, Normal Reflexes, No Motor/Sensory Deficits, Oriented x 3. No: Difficulty Walking Back Exam: Normal Inspection. No: CVA Tenderness (R), CVA Tenderness (L) Extremities: Normal Inspection, Normal Range of Motion, Non-Tender, No Pedal Edema. No: Pedal Edema Psychiatric: Normal Affect, Normal Mood Skin Exam: Warm, Dry, Intact, Normal Color, No Rash Course - Vital Signs Last Recorded V/S: Last Vital Signs Temp 36.6 C 05/23/20 12:49 Pulse 62 05/23/20 14:10 Resp 20 05/23/20 14:10 BP 93/54 L 05/23/20 14:10 Pulse Ox 95 05/23/20 14:10 - Orders/Labs/Meds Labs: Laboratory Tests 05/23/20 05/23/20 05/23/20 Range/Units 14:21 14:21 16:10 WBC 7.9 (4.5-11.0) K/uL RBC 4.31 (3.30-5.50) M/uL Hgb 11.5 L (12.0-15.0) g/dL Hct 36.4 (36.0-48.0) % MCV 85 (80-98) fL MCH 27 (27-31) pg MCHC 32 (32-36) % Plt Count 210 (150-400) K/uL Sodium 138 L (140-148) mmol/L Potassium 3.7 (3.6-5.2) mmol/L Chloride 101 (100-108) mmol/L Carbon Dioxide 27 (21-32) mmol/L Anion Gap 13.7 (5.0-14.0) mmol/L BUN 27 H D (7-18) mg/dL Creatinine 1.1 H (0.6-1.0) mg/dL Est Cr Clr Drug Dosing 37.10 mL/min Estimated GFR (MDRD) 49 L (>60) Glucose 177 H (74-106) mg/dL Calcium 9.3 D (8.5-10.1) mg/dL Troponin I < 0.017 (0.000-0.056) ng/mL Urine Color Yellow (YELLOW) Urine Appearance Clear (CLEAR) Urine pH 5.5 (5.0-8.0) Ur Specific [place] 1.015 (1.008-1.030) Urine Protein Negative (NEGATIVE) mg/dL Urine Glucose (UA) Negative (NEGATIVE) mg/dL Urine Ketones Negative (NEGATIVE) mg/dL Urine Occult Blood Negative (NEGATIVE) Urine Nitrite Negative (NEGATIVE) Urine Bilirubin Negative (NEGATIVE) Urine Urobilinogen 0.2 (0.2-1.0) EU/dL Ur Leukocyte Esterase Negative (NEGATIVE) Urine RBC Not seen (0-5) Urine WBC 0-5 (0-5) Ur Epithelial Cells Rare Urine Bacteria Not seen Meds: Medications Discontinued Medications Generic Name Dose Route Start Last Admin Trade Name Freq PRN Reason Stop Dose Admin Acetaminophen 1,000 mg 05/23/20 16:32 05/23/20 16:50 Tylenol Extra Strength PO 05/23/20 16:33 1,000 mg ONETIME ONE Administration Clopidogrel Bisulfate 300 mg 05/23/20 16:15 05/23/20 16:30 Plavix PO 05/23/20 16:16 300 mg ONETIME ONE Administration Lactated Ringer's 1,000 mls @ 1,000 mls/hr 05/23/20 14:47 05/23/20 15:02 Ringers, Lactated IV 05/23/20 15:46 1,000 mls/hr BOLUS ONE Administration - Radiology Interpretation Free Text/Narrative:: Head CT scan-nothing acute CT Results Date: 05/23/20 CT Results Time: 14:45 - Re-Assessments/Exams Free Text/Narrative Re-Assessment/Exam: 05/23/20 16:14 Feels similar after a liter of LR IV. Departure - Departure Time of Disposition: 17:14 Disposition: Home, Self-Care 01 Condition: Fair Clinical Impression: TIA (transient ischemic attack), Mild dehydration, Elevated blood sugar - Discharge Information *PRESCRIPTION DRUG MONITORING PROGRAM REVIEWED*: No *COPY OF PRESCRIPTION DRUG MONITORING REPORT IN PATIENT LORI: No Prescriptions: Clopidogrel [Plavix] 75 mg PO DAILY #30 tablet Referrals: PCP,None [Primary Care Provider] - Forms: ED Department Discharge Additional Instructions: Take Plavix 75 mg daily for stroke prevention. All of your testing today in the ER was negative. I would like for you to follow up with your provider to discuss possibly getting a referral to neurology vs. getting an MRI of your brain for a more detailed look at your brain. Return here as needed. Your Rx went to [facility]'s. Sepsis Event Note (ED) - Evaluation Sepsis Screening Result: No Definite Risk - Focused Exam Vital Signs: Vital Signs Temp Pulse Resp BP Pulse Ox 05/23/20 14:10 62 20 93/54 L 95 05/23/20 13:06 63 14 112/55 L 96 05/23/20 12:49 36.6 C 66 20 122/55 L 99 05/23/20 12:41 36.6 C 66 20 122/55 L 99
--- NOTE | 2020-05-23 14:10 | CT ---
Head wo Cont CLINICAL HISTORY: TIA versus CVA COMPARISON: None TECHNIQUE: Transverse scans were obtained from the base of the skull through the vertex without IV contrast on a multislice, multidetector CT scanner. Auto dosage reduction and iterative reconstruction techniques employed. FINDINGS: No focal abnormal parenchymal density is identified.. There is no mass effect, hemorrhage, or extraaxial collection. The basal cisterns and sulci over the convexities are mildly prominent. The ventricles are normal for age. IMPRESSION: No acute intracranial process seen
[2020-05-23] MEDS ORDERED: Lactated Ringers 1,000 ML IV ONE (14:47)
[2020-05-23] MEDS ORDERED: Clopidogrel 75 MG Tab PO ONE (16:15)
[2020-05-23] MEDS ORDERED: Acetaminophen 500 MG Tab PO ONE (16:32)
== END 2020-05-23 17:31 | disposition home or self-care (01) ==
LOC: JP.ED 12:27
DX: G45.9 Transient cerebral ischemic attack, unspecified (principal); E86.0 Dehydration; E10.65 Type 1 diabetes mellitus with hyperglycemia; I25.2 Old myocardial infarction; I25.10 Atherosclerotic heart disease of native coronary artery without angina pectoris; Z79.84 Long term (current) use of oral hypoglycemic drugs; Z79.02 Long term (current) use of antithrombotics/antiplatelets; Z95.5 Presence of coronary angioplasty implant and graft; Z91.041 Radiographic dye allergy status; Z88.1 Allergy status to other antibiotic agents; Z88.0 Allergy status to penicillin; Z88.5 Allergy status to narcotic agent; Z91.040 Latex allergy status; Z79.82 Long term (current) use of aspirin; Z79.899 Other long term (current) drug therapy; Z90.49 Acquired absence of other specified parts of digestive tract; Z90.710 Acquired absence of both cervix and uterus
CPT/HCPCS: 36415; 70450; 80048; 81001; 84484; 85027; 96360; 99284; A9270; J7120

== ENCOUNTER 2021-02-18 22:49 | Emergency (ER) | payer MEDICARE ==
[2021-02-18] MEDS ORDERED: Acetaminophen 500 MG Tab PO ONE (23:20)
[2021-02-18] MEDS ORDERED: Silver Nitrate Applicator Each TOP ONE (23:38)
[2021-02-18] MEDS ORDERED: Silver Nitrate Applicator Each ONE (23:39)
--- NOTE | 2021-02-18 23:47 | EDM.PDOC ---
ED HPI GENERAL MEDICAL PROBLEM - General Chief Complaint: ENT Problem Stated Complaint: BLOODY NOSE Time Seen by Provider: 02/18/21 23:20 Source of Information: Reports: Patient History Limitations: Reports: No Limitations - History of Present Illness INITIAL COMMENTS - FREE TEXT/NARRATIVE: 70-year-old female with a persistent left-sided epistaxis for the last 3 hours. They placed several doses of Afrin in the nose, and packed the nose with Kleenex but it still seemed to be persistently oozing so they came in to be seen. External pressure was applied to the nose on arrival to the emergency room. Patient is complaining of a mild headache. Onset: Sudden Duration: Hour(s): Location: Reports: Other (Left nares) Associated Symptoms: Reports: Headaches. Denies: Fever/Chills, Nausea/Vomiting, Shortness of Breath - Related Data Allergies Allergy/AdvReac Type Severity Reaction Status Date / Time Iodinated Contrast Media Allergy Severe Anaphylactic Verified 02/18/21 23:08 Shock metronidazole [From Flagyl] Allergy Severe Anaphylactic Verified 02/18/21 23:08 Shock Penicillins Allergy Severe Anaphylactic Verified 02/18/21 23:08 Shock ciprofloxacin [From Cipro] Allergy Rash Verified 02/18/21 23:08 Latex, Natural Rubber Allergy Hives Verified 02/18/21 23:08 levofloxacin Allergy Nausea and Verified 02/18/21 23:08 Vomiting morphine Allergy Hives Verified 02/18/21 23:08 Home Meds: Home Meds Cholecalciferol (Vitamin D3) [Vitamin D3] 1 cap PO DAILY 12/26/19 [History] Citalopram [Citalopram HBr] 20 mg PO DAILY 12/26/19 [History] Furosemide [Lasix] 40 mg PO DAILY PRN 12/26/19 [History] Metoprolol Succinate [Toprol XL] 25 mg PO DAILY 12/26/19 [History] Multivitamin [Multi-Vitamin Daily] 1 tab PO DAILY 12/26/19 [History] Pregabalin 150 mg PO BID 12/26/19 [History] Rosuvastatin Calcium 40 mg PO BEDTIME 12/26/19 [History] Ubidecarenone/Vitamin E [Co Q-10 50 MG Softgel] 1 each PO DAILY 12/26/19 [History] metFORMIN [Glucophage] 1,000 mg PO BIDMEALS 12/26/19 [History] Lactobacillus Rhamnosus GG [Culturelle] 1 cap PO BID #60 cap 12/28/19 [Rx] Calcium Carb/D3/Magnesium/Zinc [Jonathan Mag Zinc + D3] 3 tab PO DAILY 02/07/20 [History] Pantoprazole [ProTONIX] 1 tab PO DAILY 02/07/20 [History] Clopidogrel [Plavix] 75 mg PO DAILY #30 tablet 05/23/20 [Rx] Past Medical History HEENT 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: Impaired Vision, Other (See Below) Other HEENT History: wears dentures Cardiovascular 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: Arrhythmia, CAD, MS [employer] 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: Endocrine/Metabolic 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: Diabetes, Type I Oncologic (Cancer) 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: Breast Dermatologic 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: Cellulitis - Infectious Disease History Infectious Disease 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: C-Difficile, Chicken Pox - Past Surgical History HEENT Surgical 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: Cataract Surgery Cardiovascular Surgical 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: Coronary Artery Bypass, Coronary Artery Stent, Pacer GI Surgical 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: Cholecystectomy Female Surgical 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: Hysterectomy, Oophorectomy Oncologic Surgical 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: Mastectomy Social & Family History - Tobacco Use Tobacco Use Status *Q: Never Tobacco User - Caffeine Use Caffeine Use: Reports: Coffee, Soda, Tea - Recreational Drug Use Recreational Drug Use: No ED ROS ENT - Review of Systems Review Of Systems: See Below Constitutional: Reports: Malaise (Swallowing blood is making her somewhat nauseous). Denies: Fever, Chills Respiratory: Denies: Shortness of Breath, Cough Cardiovascular: Denies: Chest Pain GI/Abdominal: Reports: Nausea. Denies: Vomiting Skin: Reports: No Symptoms Neurological: Reports: Headache Psychiatric: Reports: No Symptoms ED EXAM, ENT - Physical Exam Exam: See Below Exam Limited By: No Limitations General Appearance: Alert, No Apparent Distress, Anxious Eye Exam: Bilateral Eye: Normal Inspection Nose: Other (Small amount of dried blood on the septum of the left nares, no active bleeding in the nose or throat) Mouth/Throat: Normal Inspection Head: Atraumatic Respiratory/Chest: No Respiratory Distress, Lungs Clear Neurological: Alert, Oriented Psychiatric: Normal Affect, Normal Mood Skin: Warm, Dry Course - Vital Signs Last Recorded V/S: Last Vital Signs Temp 97.6 F 02/18/21 23:11 Pulse 56 L 02/18/21 23:11 Resp 16 02/18/21 23:11 BP 159/81 H 02/18/21 23:11 Pulse Ox 98 02/18/21 23:11 - Orders/Labs/Meds Meds: Medications Discontinued Medications Generic Name Dose Route Start Last Admin Trade Name Evangelista PRN Reason Stop Dose Admin Acetaminophen 1,000 mg 02/18/21 23:20 02/18/21 23:23 Acetaminophen 500 Mg Tab PO 02/18/21 23:21 1,000 mg ONETIME ONE Administration Silver Nitrate 1 each 02/18/21 23:38 02/18/21 23:40 Silver Nitrate Applicator Each TOP 02/18/21 23:39 1 each ONETIME ONE Administration Silver Nitrate Confirm 02/18/21 23:39 Silver Nitrate Applicator Each Administered 02/18/21 23:40 Dose 1 each .ROUTE .STK-MED ONE - Re-Assessments/Exams Free Text/Narrative Re-Assessment/Exam: 02/18/21 23:46 On arrival to the emergency room external pressure was applied to the nose for 15 minutes, then the nares were examined. There was no active bleeding but two sites on the left septum looks suspicious for recent bleeding. These were both cauterized with silver nitrate. Patient had no additional bleeding and was discharged. 02/18/21 23:47 Prior to discharge, patient was given oral acetaminophen for her "headache". Departure - Departure Time of Disposition: 23:52 Disposition: Home, Self-Care 01 Clinical Impression: Left-sided epistaxis - Discharge Information Instructions: Nosebleed, [id number] Referrals: Yoselyn Morales MD [Primary Care Provider] - Forms: ED Department Discharge Care Plan Goals: If bleeding recurs, try external pressure for 10 to 15 minutes and return to the emergency room if bleeding is persistent and uncontrolled. Sepsis Event Note (ED) - Evaluation Sepsis Screening Result: No Definite Risk - Focused Exam Vital Signs: Vital Signs Temp Pulse Resp BP Pulse Ox 02/18/21 23:11 97.6 F 56 L 16 159/81 H 98
== END 2021-02-18 23:53 | disposition home or self-care (01) ==
LOC: JP.ED 22:49
DX: R04.0 Epistaxis (principal); I25.10 Atherosclerotic heart disease of native coronary artery without angina pectoris; I25.2 Old myocardial infarction; Z79.899 Other long term (current) drug therapy; Z79.02 Long term (current) use of antithrombotics/antiplatelets; Z88.1 Allergy status to other antibiotic agents; Z88.8 Allergy status to other drugs, medicaments and biological substances; Z90.410 Acquired total absence of pancreas
CPT/HCPCS: 30901; 99283-25; A9270-GY

== ENCOUNTER 2022-01-08 07:35 | Emergency (ER) | payer MEDICARE | END 2022-01-08 10:43 | disposition home or self-care (01) | LOC: JP.ED 07:35 | DX: S43.401A Unspecified sprain of right shoulder joint, initial encounter (principal); I25.10 Atherosclerotic heart disease of native coronary artery without angina pectoris; I25.2 Old myocardial infarction; J44.9 Chronic obstructive pulmonary disease, unspecified; E10.9 Type 1 diabetes mellitus without complications; Z91.041 Radiographic dye allergy status; Z88.0 Allergy status to penicillin; Z88.1 Allergy status to other antibiotic agents; Z91.040 Latex allergy status; Z88.5 Allergy status to narcotic agent; Z79.899 Other long term (current) drug therapy; Z79.02 Long term (current) use of antithrombotics/antiplatelets; X50.9XXA Other and unspecified overexertion or strenuous movements or postures, initial encounter | CPT/HCPCS: 73030-LT; 99281; 99283-25 ==

== ENCOUNTER 2024-05-30 19:09 | Emergency (ER) | payer MEDICARE ==
[2024-05-30] MEDS: Azithromycin 250 MG Tab PO ONE (20:20)
[2024-05-30 20:35] LABS: CORONAVIRUS COVID-19 NAA NEGATIVE (NEGATIVE); INFLUENZA A NAA NEGATIVE (NEGATIVE); INFLUENZA B NAA NEGATIVE (NEGATIVE); RESPIRATORY SYNCYTIAL VIR NAA NEGATIVE (NEGATIVE)
== END 2024-05-30 21:25 | disposition home or self-care (01) ==
LOC: JP.ED 19:09
DX: J40 Bronchitis, not specified as acute or chronic (principal); I25.10 Atherosclerotic heart disease of native coronary artery without angina pectoris; I25.2 Old myocardial infarction; J44.9 Chronic obstructive pulmonary disease, unspecified; E10.9 Type 1 diabetes mellitus without complications; Z86.16 Personal history of COVID-19; Z79.02 Long term (current) use of antithrombotics/antiplatelets; Z79.899 Other long term (current) drug therapy; Z95.1 Presence of aortocoronary bypass graft; Z88.1 Allergy status to other antibiotic agents; Z88.5 Allergy status to narcotic agent; Z88.0 Allergy status to penicillin; Z91.041 Radiographic dye allergy status; Z91.040 Latex allergy status; Z90.710 Acquired absence of both cervix and uterus
CPT/HCPCS: 0241U; 99284; A9270